=== PATIENT | female | born 1950 | race Caucasian/White ===

== ENCOUNTER 2016-09-04 12:40 | Inpatient (IN) | payer SELFPAY ==
[~2016-09-04] VITALS: Ht 167.6 cm; Wt 68.2 kg
[2016-09-04] VITALS (10 sets, daily range): BP systolic 165–244; BP diastolic 78–123; PULSE 69–108; RESP 16–24; TEMP 98–98.2; O2SAT 96–100
[~2016-09-04 12:40] MED LIST: CLON.1 PO; CYCL1PAK PO; DUONI NEB; HYDR-3533 PO; HYDR-3580 PO; ISOS30TA3 PO; LORA-474 PO; NEBI5 PO; NICO14DI18 TD; NITR.4 SL; PRED2.5T4 PO; PROT40TA PO; SPIRCAP INH; SYMB160A INH; XYZA5TAB2 PO
--- NOTE | 2016-09-04 13:15 | PD ---
HPI Chief Complaint: Edema Time Seen by Provider: 13:15 Travel History International Travel<30 days: No Contact w/Intl Traveler<30days: No Traveled to known affect area: No History of Present Illness HPI 66-year-old female with history of COPD, CAD, hypertension, GERD, anxiety presents to the emergency department for evaluation of difficulty breathing. Patient states over the last 4 months she has been having more exacerbations. She states her physician has placed her on prophylactic azithromycin. She states she is also currently taking 1000 mg of Augmentin. She is getting Decadron injections and she states she is just not getting any better. She is also having lower extremity swelling. She states she has been unable to take her Lasix today but they are not helping her either. She denies any recent illnesses, fever, or chills. She states that she has waited too long to come to the emergency department thinking that she may get better. She states she's been having extreme tightness in her chest with difficulty breathing. Continues to smoke tobacco cigarettes. Has no other symptoms to report at this time. PFSH Past Medical History Arthritis: No Asthma: Yes Autoimmune Disease: No Anxiety: Yes Depression: No Heart Rhythm Problems: No Cancer: No Cardiac Catheterization: Yes Cardiovascular Problems: Yes High Cholesterol: Yes Chemotherapy: No Chest Pain: Yes Congestive Heart Failure: No COPD: Yes Cerebrovascular Accident: No Coronary Artery Disease: Yes Diabetes: No Diminished Hearing: No Endocrine: No GERD: No Genitourinary: No Hepatitis: No Hiatal Hernia: No Hypertension: Yes Immune Disorder: No Kidney Stones: No Musculoskeletal: Yes Neurologic: No Psychiatric: No Reproductive: No Respiratory: Yes Migraines: No Pneumonia: Yes Radiation Therapy: No Renal Failure: No Seizures: No Sickle Cell Disease: No Sleep Apnea: No Thyroid Disease: No Ulcer: Yes Tubal Ligation: Yes Past Surgical History Abdominal Surgery: Yes (open aorta femeral bypass) AICD: No Appendectomy: Yes Arteriovenous Shunt: No Body Medical Devices: Breast implants Cardiac Surgery: Yes (non interventional heart cath) Ear Surgery: No Endocrine Surgery: No Eye Surgery: No Genitourinary Surgery: No Gynecologic Surgery: Yes (Hysterectomy) Hysterectomy: Yes Insulin Pump: No Joint Replacement: No Oral Surgery: Yes Pacemaker: No Thoracic Surgery: Yes (Brochoscopy) Tonsillectomy: Yes Social History Alcohol Use: Yes (OCCASIONAL) Tobacco Use: Yes (E-CIG/4-5 CIGS/DAY) Substance Use: No Allergies-Medications (Allergen,Severity, Reaction): Coded Allergies: Demerol (Verified Allergy, Severe, Anaphylaxis, 09/04/16) Tetracycline (Verified Allergy, Unknown, 09/04/16) Reported Meds & Prescriptions Reported Meds & Active Scripts Active Reported Augmentin (Amoxicillin-Clavulanate) 875-125 mg Tab 875 Mg PO BID not for use in CrCl <30 ml/min. Prednisone 1 Mg Tab 1 Mg PO DAILY Zithromax (Azithromycin) 500 Mg Tab 500 Mg PO DAILY [place] (Hydrocodone-Acetaminophen) 5-325 mg Tab 1 Tab PO Q6H PRN Ativan (Lorazepam) 0.5 Mg Tab 0.5 Mg PO DAILY PRN Vitamin D (Cholecalciferol) 5,000 Unit Tab 4,000 Spiriva Handihaler (Tiotropium Inh) 18 Mcg Cap 18 Mcg INH DAILY 1 capsule = 18 mcg Symbicort Inh (Budesonide/Formoterol Fumarate) 160-4.5 Mcg/Act Aero 1 Puff INH Q12HR Losartan (Losartan Potassium) 25 Mg Tab 25 Mg PO DAILY Amlodipine (Amlodipine Besylate) 5 Mg Tab 5 Mg PO DAILY [imdur] Review of Systems Except as stated in HPI: all other systems reviewed are Neg Physical Exam Narrative GENERAL: Chronically ill-appearing female patient, with strong smell of tobacco cigarette smoke, sitting on the bed, short respirations, in mild distress SKIN: Warm and dry. HEAD: Atraumatic. Normocephalic. EYES: Pupils equal and round. No scleral icterus. No injection or drainage. ENT: No nasal bleeding or discharge. Mucous membranes pink and moist. NECK: Trachea midline. No JVD. CARDIOVASCULAR: Tachycardic rate and rhythm. No murmur appreciated. RESPIRATORY: Shallow respirations. Diminished with a faint inspiratory and expiratory wheeze to auscultation. Breath sounds equal bilaterally. GASTROINTESTINAL: Abdomen soft, non-tender, nondistended. Hepatic and splenic margins not palpable. MUSCULOSKELETAL: No obvious deformities. No clubbing. No cyanosis. 2+ bilateral lower extremity edema. NEUROLOGICAL: Awake and alert. No obvious cranial nerve deficits. Motor grossly within normal limits. Normal speech. Data Data Last Documented VS Vital Signs Date Time Temp Pulse Resp B/P Pulse Ox O2 Delivery O2 Flow Rate FiO2 09/04/16 17:58 69 18 187/97 100 Aerosol Mask 09/04/16 16:33 2 09/04/16 13:35 21 09/04/16 12:44 98.0 Orders Complete Blood Count With Diff (09/04/16 13:19) Comprehensive Metabolic Panel (09/04/16 13:19) B-Type Natriuretic Peptide (09/04/16 13:19) D-Dimer (09/04/16 13:19) Act Partial Throm Time (Ptt) (09/04/16 13:19) Prothrombin Time / Inr (Pt) (09/04/16 13:19) Magnesium (Mg) (09/04/16 13:19) Ckmb (Isoenzyme) Profile (09/04/16 13:19) Troponin I (09/04/16 13:19) Urinalysis - C+S If Indicated (09/04/16 13:19) Influenzae A/B Antigen (09/04/16 13:19) Blood Culture (09/04/16 13:19) Electrocardiogram (09/04/16 13:19) Chest, Single Ap (09/04/16 13:19) Albuterol-Ipratropium Neb (Duoneb Neb) (09/04/16 13:30) Lactic Acid Sepsis Protocol (09/04/16 13:26) CKMB (09/04/16 13:40) CKMB% (09/04/16 13:40) Labetalol Inj (Trandate Inj) (09/04/16 16:00) Ct Pulmonary Angiogram (09/04/16 16:02) Methylprednisolone So Succ Inj (Solumedr (09/04/16 16:15) Levofloxacin 750 Mg Premix Inj (Levaquin (09/04/16 16:15) Albuterol Neb (Albuterol Neb) (09/04/16 17:15) Iohexol 350 Inj (Omnipaque 350 Inj) (09/04/16 17:28) Amlodipine (Norvasc) (09/05/16 09:00) Budeson-Formot 160-4.5 Mg Inh (Symbicort (09/04/16 21:00) Acetamin-Hydrocod 325-5 Mg ([place] 5-325 (09/04/16 18:15) Lorazepam (Ativan) (09/04/16 18:15) Losartan (Cozaar) (09/05/16 09:00) Prednisone (Deltasone) (09/05/16 09:00) Tiotropium Inh (Spiriva Inh) (09/05/16 09:00) Admit Order (Ed Use Only) (09/04/16 18:03) Enoxaparin Inj (Lovenox Inj) (09/04/16 18:15) Consult Hematology (09/04/16 ) Labs Laboratory Tests Test 09/04/16 09/04/16 13:40 13:45 White Blood Count 18.6 TH/MM3 Red Blood Count 4.62 MIL/MM3 Hemoglobin 14.4 GM/DL Hematocrit 42.4 % Mean Corpuscular Volume 91.8 FL Mean Corpuscular Hemoglobin 31.2 PG Mean Corpuscular Hemoglobin 34.0 % Concent Red Cell Distribution Width 14.4 % Platelet Count 266 TH/MM3 Mean Platelet Volume 7.3 FL Neutrophils (%) (Auto) 78.3 % Lymphocytes (%) (Auto) 12.9 % Monocytes (%) (Auto) 8.4 % Eosinophils (%) (Auto) 0.1 % Basophils (%) (Auto) 0.3 % Neutrophils # (Auto) 14.6 TH/MM3 Lymphocytes # (Auto) 2.4 TH/MM3 Monocytes # (Auto) 1.6 TH/MM3 Eosinophils # (Auto) 0.0 TH/MM3 Basophils # (Auto) 0.0 TH/MM3 CBC Comment DIFF FINAL Differential Comment Prothrombin Time 10.0 SEC Prothromb Time International 0.9 RATIO Ratio Activated Partial 23.0 SEC Thromboplast Time D-Dimer Quantitative (PE/DVT) 0.70 MG/L FEU Urine Color LIGHT-YELLOW Urine Turbidity CLEAR Urine pH 7.0 Urine Specific [place] 1.006 Urine Protein NEG mg/dL Urine Glucose (UA) NEG mg/dL Urine Ketones NEG mg/dL Urine Occult Blood NEG Urine Nitrite NEG Urine Bilirubin NEG Urine Urobilinogen LESS THAN 2.0 MG/DL Urine Leukocyte Esterase NEG Urine RBC LESS THAN 1 /hpf Urine WBC LESS THAN 1 /hpf Urine Squamous Epithelial <1 /hpf Cells Microscopic Urinalysis Comment CULT NOT INDICATED Sodium Level 139 MEQ/L Potassium Level 3.5 MEQ/L Chloride Level 99 MEQ/L Carbon Dioxide Level 34.0 MEQ/L Anion Gap 6 MEQ/L Blood Urea Nitrogen 20 MG/DL Creatinine 0.93 MG/DL Estimat Glomerular Filtration 61 ML/MIN Rate Random Glucose 100 MG/DL Calcium Level 8.7 MG/DL Magnesium Level 2.2 MG/DL Total Bilirubin 0.3 MG/DL Aspartate Amino Transf 25 U/L (AST/SGOT) Alanine Aminotransferase 42 U/L (ALT/SGPT) Alkaline Phosphatase 82 U/L Total Creatine Kinase 120 U/L Creatine Kinase MB 4.9 NG/ML Troponin I 0.02 NG/ML B-Type Natriuretic Peptide 215 PG/ML Total Protein 6.6 GM/DL Albumin 3.6 GM/DL Lactic Acid Level 1.1 mmol/L MDM Medical Decision Making Medical Screen Exam Complete: Yes Emergency Medical Condition: Yes Medical Record Reviewed: Yes Differential Diagnosis COPD exacerbation versus pneumonia versus influenza versus neoplasm versus CHF Narrative Course 66-year-old female presents to the emergency department for evaluation. Workup initiated in triage. Patient is given DuoNeb 3 here in triage as well. Once a medical bed becomes available, patient will be transferred and care assumed by that provider. Condition: Stable Kasie Ashley Sep 04, 2016 13:15
[2016-09-04] MEDS: RESP: ALBUTEROL 2.5 MG/IPRATROPIUM 0.5 MG NEB (SCH) INH ×2 (13:30→13:34)
[2016-09-04 14:03] LABS: AUTOMATED NEUTROPHIL # 14.6 TH/MM3 (1.8-7.7); BASOPHIL % 0.3 % (0.0-2.0); EOSINOPHIL % 0.1 % (0.0-4.0); HEMATOCRIT 42.4 % (35.0-46.0); HEMO FLAGS DIFF FINAL; LYMPH % 12.9 % (9.0-44.0); LYMPHOCYTE # 2.4 TH/MM3 (1.0-4.8); MEAN CELL VOLUME 91.8 FL (80.0-100.0); MEAN CORPUSCULAR HEMOGLOBIN 31.2 PG (27.0-34.0); MONO % 8.4 % (0.0-8.0); NEUT % 78.3 % (16.0-70.0); PLATELET COUNT 266 TH/MM3 (150-450); RED BLOOD COUNT 4.62 MIL/MM3 (4.00-5.30); RED CELL DISTRIBUTION WIDTH 14.4 % (11.6-17.2); WHITE BLOOD COUNT 18.6 TH/MM3 (4.0-11.0)
[2016-09-04 14:04] LABS: BLOOD, URINE NEG (NEG); GLUCOSE,URINE NEG (NEG); KETONE, URINE NEG (NEG); NITRITE,URINE NEG (NEG); SQUAMOUS EPITHELIAL CELL URINE <1 /hpf (0-5); URINE COLOR LIGHT-YELLOW (YELLW/STRAW)
[2016-09-04 14:06] LABS: COMMENT (UR) CULT NOT INDICATED; CULTURE IF INDICATED CULT NOT INDICATED
--- NOTE | 2016-09-04 14:14 | RADRPT ---
EXAM DATE/TIME: 09/04/2016 13:18 [facility] COMPARISON: CHEST SINGLE AP, October 04, 2014, 16:56. INDICATIONS : Patient is very short of breath. She also states she has chest pain in the center of her chest. MEDICAL HISTORY : Hypertension. Chronic obstructive pulmonary disease. SURGICAL HISTORY : None. ENCOUNTER: Initial ACUITY: 3 weeks PAIN SCORE: 6/10 LOCATION: chest FINDINGS: The cardiac silhouette is enlarged in transverse diameter. The lungs are free of acute parenchymal op acity. No effusions are identified. Osseous structures are intact. CONCLUSION: Cardiomegaly. No acute cardiopulmonary disease. Jesús Cruz MD on September 04, 2016 at 14:12 Board Certified Radiologist. This report was verified electronically.
[2016-09-04 14:18] LABS: ALT (GPT) 42 U/L (10-53); ANION GAP 6 MEQ/L (5-15); AST (GOT) 25 U/L (15-37); BLOOD UREA NITROGEN 20 MG/DL (7-18); CHLORIDE 99 MEQ/L (98-107); GLOMERULAR FILTRATION RATE 61 ML/MIN (>89); MAGNESIUM 2.2 MG/DL (1.5-2.5); POTASSIUM 3.5 MEQ/L (3.5-5.1); SODIUM (NA) 139 MEQ/L (136-145)
[2016-09-04 14:23] LABS: ALKALINE PHOSPHATASE 82 U/L (45-117); CREATINE KINASE 120 U/L (26-192); TOTAL BILIRUBIN ADULT 0.3 MG/DL (0.2-1.0)
[2016-09-04 14:27] LABS: INTERNATIONAL NORMALIZED RATIO 0.9 RATIO
[2016-09-04 14:35] LABS: CKMB 4.9 NG/ML (0.5-3.6)
[2016-09-04] MEDS ORDERED: LABETALOL HCL 100 MG/20 ML VIAL IV PUSH ONE (16:00)
[2016-09-04] MEDS ORDERED: LEVOFLOXACIN 750 MG PREMIX INJ 150 ML IV ONE (16:15)
[2016-09-04] MEDS ORDERED: methylPREDNISolone SOD SUCC 125 MG/2 ML VIAL IVP ONE (16:15)
[2016-09-04] MEDS ORDERED: LORA-392 PO (16:57)
[2016-09-04] MEDS ORDERED: imdur (16:57)
[2016-09-04] MEDS ORDERED: AMLO5TAB2 PO (16:57)
[2016-09-04] MEDS ORDERED: LOSA25TA PO (16:57)
[2016-09-04] MEDS ORDERED: ZITH500T PO (16:57)
[2016-09-04] MEDS ORDERED: AUGM875T PO (16:57)
[2016-09-04] MEDS ORDERED: SYMB160A INH (16:57)
[2016-09-04] MEDS ORDERED: NORC5TAB PO (16:57)
[2016-09-04] MEDS ORDERED: SPIRCAP INH (16:57)
[2016-09-04] MEDS ORDERED: CHOL50006 (16:57)
[2016-09-04] MEDS ORDERED: PRED1 PO (16:57)
[2016-09-04] MEDS ORDERED: IOHEXOL 350 MG/ML 10 ML VIAL (for RAD DIAG) IV ONE (17:28)
[2016-09-04] MEDS: RESP: ALBUTEROL 2.5 MG/3 ML NEB (SCH) INH (17:48)
--- NOTE | 2016-09-04 17:50 | RADRPT ---
EXAM DATE/TIME: 09/04/2016 17:11 [facility] COMPARISON: No previous studies available for comparison. INDICATIONS : Shortness of breath; evaluate for pulmonary embolism. IV CONTRAST: 75 cc Omnipaque 350 (iohexol) IV RADIATION DOSE: 9.66 CTDIvol (mGy) MEDICAL HISTORY : Cardiovascular disease. Chronic obstructive pulmonary disease. SURGICAL HISTORY : Appendectomy. Hysterectomy. ENCOUNTER: Initial ACUITY: 1 day PAIN SCALE: 3/10 LOCATION: Chest TECHNIQUE: Volumetric scanning of the chest was performed using a pulmonary embolism protocol MIP images were reconstructed. Using automated exposure control and adjustment of the mA and/or kV acco rding to patient size, radiation dose was kept as low as reasonably achievable to obtain optimal diag nostic quality images. FINDINGS: There is mild interstitial prominence. There is minimal peribronchial thickening in th e medial segment of the right middle lobe. There is no axillary adenopathy. There is no mediastinal adenopathy. There is good visualization of the central pulmonary vessels. There is no evidence for a central pul monary emboli. However there is what looks like a filling defect in the left inferior pulmonary vein. The remainder pulmonary veins are well opacified. This could be pulmonary venous thrombosis. There is reflux of contrast in the hepatic veins. This can be seen with right heart failure. There is no significant coronary artery calcification. There is a well-circumscribed 1.5 cm lesion in the right lobe of the liver. CONCLUSION: 1. Possible left inferior pulmonary vein thrombosis. 2. Possible elevated right heart pressure with reflux of contrast into the hepatic veins. Bib Souza MD FACR on September 04, 2016 at 17:31 Board Certified Radiologist. This report was verified electronically.
[2016-09-04] MEDS ORDERED: BISACODYL 10 MG SUPP PR PRN (18:15)
[2016-09-04] MEDS ORDERED: ONDANSETRON HCL 4 MG/2 ML VIAL IVP PRN (18:15)
[2016-09-04] MEDS ORDERED: SODIUM CHLORIDE 0.9% FLUSH 5 ML FLUSH FLUSH PRN (18:15)
[2016-09-04] MEDS ORDERED: ENOXAPARIN SODIUM 60 MG/0.6 ML SYRINGE SQ ONE (18:15)
[2016-09-04] MEDS ORDERED: NALOXONE HCL 0.4 MG/ML AMP IV PRN (18:15)
--- NOTE | 2016-09-04 18:22 | PD ---
Data Data Last Documented VS Vital Signs Date Time Temp Pulse Resp B/P Pulse Ox O2 Delivery O2 Flow Rate FiO2 09/04/16 17:58 69 18 187/97 100 Aerosol Mask 09/04/16 16:33 2 09/04/16 13:35 21 09/04/16 12:44 98.0 Orders Complete Blood Count With Diff (09/04/16 13:19) Comprehensive Metabolic Panel (09/04/16 13:19) B-Type Natriuretic Peptide (09/04/16 13:19) D-Dimer (09/04/16 13:19) Act Partial Throm Time (Ptt) (09/04/16 13:19) Prothrombin Time / Inr (Pt) (09/04/16 13:19) Magnesium (Mg) (09/04/16 13:19) Ckmb (Isoenzyme) Profile (09/04/16 13:19) Troponin I (09/04/16 13:19) Urinalysis - C+S If Indicated (09/04/16 13:19) Influenzae A/B Antigen (09/04/16 13:19) Blood Culture (09/04/16 13:19) Electrocardiogram (09/04/16 13:19) Chest, Single Ap (09/04/16 13:19) Albuterol-Ipratropium Neb (Duoneb Neb) (09/04/16 13:30) Lactic Acid Sepsis Protocol (09/04/16 13:26) CKMB (09/04/16 13:40) CKMB% (09/04/16 13:40) Labetalol Inj (Trandate Inj) (09/04/16 16:00) Ct Pulmonary Angiogram (09/04/16 16:02) Methylprednisolone So Succ Inj (Solumedr (09/04/16 16:15) Levofloxacin 750 Mg Premix Inj (Levaquin (09/04/16 16:15) Albuterol Neb (Albuterol Neb) (09/04/16 17:15) Iohexol 350 Inj (Omnipaque 350 Inj) (09/04/16 17:28) Amlodipine (Norvasc) (09/05/16 09:00) Budeson-Formot 160-4.5 Mg Inh (Symbicort (09/04/16 21:00) Acetamin-Hydrocod 325-5 Mg ([place] 5-325 (09/04/16 18:15) Lorazepam (Ativan) (09/04/16 18:15) Losartan (Cozaar) (09/05/16 09:00) Prednisone (Deltasone) (09/05/16 09:00) Tiotropium Inh (Spiriva Inh) (09/05/16 09:00) Admit Order (Ed Use Only) (09/04/16 18:03) Enoxaparin Inj (Lovenox Inj) (09/04/16 18:15) Consult Hematology (09/04/16 ) Labs Laboratory Tests Test 09/04/16 09/04/16 13:40 13:45 White Blood Count 18.6 TH/MM3 Red Blood Count 4.62 MIL/MM3 Hemoglobin 14.4 GM/DL Hematocrit 42.4 % Mean Corpuscular Volume 91.8 FL Mean Corpuscular Hemoglobin 31.2 PG Mean Corpuscular Hemoglobin 34.0 % Concent Red Cell Distribution Width 14.4 % Platelet Count 266 TH/MM3 Mean Platelet Volume 7.3 FL Neutrophils (%) (Auto) 78.3 % Lymphocytes (%) (Auto) 12.9 % Monocytes (%) (Auto) 8.4 % Eosinophils (%) (Auto) 0.1 % Basophils (%) (Auto) 0.3 % Neutrophils # (Auto) 14.6 TH/MM3 Lymphocytes # (Auto) 2.4 TH/MM3 Monocytes # (Auto) 1.6 TH/MM3 Eosinophils # (Auto) 0.0 TH/MM3 Basophils # (Auto) 0.0 TH/MM3 CBC Comment DIFF FINAL Differential Comment Prothrombin Time 10.0 SEC Prothromb Time International 0.9 RATIO Ratio Activated Partial 23.0 SEC Thromboplast Time D-Dimer Quantitative (PE/DVT) 0.70 MG/L FEU Urine Color LIGHT-YELLOW Urine Turbidity CLEAR Urine pH 7.0 Urine Specific [place] 1.006 Urine Protein NEG mg/dL Urine Glucose (UA) NEG mg/dL Urine Ketones NEG mg/dL Urine Occult Blood NEG Urine Nitrite NEG Urine Bilirubin NEG Urine Urobilinogen LESS THAN 2.0 MG/DL Urine Leukocyte Esterase NEG Urine RBC LESS THAN 1 /hpf Urine WBC LESS THAN 1 /hpf Urine Squamous Epithelial <1 /hpf Cells Microscopic Urinalysis Comment CULT NOT INDICATED Sodium Level 139 MEQ/L Potassium Level 3.5 MEQ/L Chloride Level 99 MEQ/L Carbon Dioxide Level 34.0 MEQ/L Anion Gap 6 MEQ/L Blood Urea Nitrogen 20 MG/DL Creatinine 0.93 MG/DL Estimat Glomerular Filtration 61 ML/MIN Rate Random Glucose 100 MG/DL Calcium Level 8.7 MG/DL Magnesium Level 2.2 MG/DL Total Bilirubin 0.3 MG/DL Aspartate Amino Transf 25 U/L (AST/SGOT) Alanine Aminotransferase 42 U/L (ALT/SGPT) Alkaline Phosphatase 82 U/L Total Creatine Kinase 120 U/L Creatine Kinase MB 4.9 NG/ML Troponin I 0.02 NG/ML B-Type Natriuretic Peptide 215 PG/ML Total Protein 6.6 GM/DL Albumin 3.6 GM/DL Lactic Acid Level 1.1 mmol/L MDM Supervised Visit with RODNEY: Yes Narrative Course I, Dr. Cortez, have reviewed the advance practice practioner's documentation and am in agreement, met with the patient face to face, made the diagnosis, and the medical decision making was done by me. *My assessment and Findings: 66-year-old female with history of COPD, CAD here with complaint of shortness of breath. Essentially patient has been ill for the last 4 months with COPD exacerbation type symptoms intermittently on antibiotics and glucocorticoids, most recently receiving Augmentin and Decadron/ prednisone this past Wednesday, 3 days ago. Patient still feels short of breath and states that this is not helping, cough productive of clear sputum. No documented fevers. She continues smokes tobacco. No history of DVT, PE. She is on Lasix for lower extremity edema but denies history of CHF. Patient notably hypertensive, slightly tachycardic and slightly tachypneic but not hypoxic. Coarse breath sounds throughout. Regular rhythm with good distal pulses. Differential includes COPD exacerbation, pneumonia, sepsis, hypertensive urgency, CHF, pulmonary embolism. EKG and laboratory workup notable for WBC 18.6, likely due to her underlying glucocorticoids but could be infectious . D-dimer slightly elevated 0.70. Influenza and chest x-ray negative. Patient given steroids, albuterol, labetalol, Levaquin. CT pulmonary intervention was possible left inferior pulmonary vein thrombosis. Possible elevated right heart pressure with reflux of contrast into hepatic vein. Patient was given Lovenox and will be admitted for further management and hematology consultation. Critical Care Narrative Aggregate critical care time was 40 minutes. Time to perform other separately billable procedures was not included in the critical care time. My time did not include minutes spent treating any other patients simultaneously or on activities that did not directly contribute to the patient's treatment. The services I provided to this patient were to treat and/or prevent clinically significant deterioration that could result in: Cardiopulmonary decompensation, , disability I provided critical care services requiring my management, as noted below: Chart data review, documentation time, medication orders and management, vital sign assessments/reviewing monitor data, ordering and reviewing lab tests, ordering and interpreting/reviewing x-rays and diagnostic studies, care of the patient and discussion of the patient with the admitting physicians. Diagnosis Primary Impression: Pulmonary embolism Qualified Code: I26.99 - Other acute pulmonary embolism without acute cor pulmonale Additional Impression: COPD exacerbation Admitting Information Admitting Physician Requests: Admit Condition: Stable Leslee Cortez MD Sep 04, 2016 18:22
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
[2016-09-04] MEDS: ENALAPRILAT 1.25 MG/ML VIAL IV PUSH PRN (19:45)
[2016-09-04] MEDS: ENOXAPARIN SODIUM 60 MG/0.6 ML SYRINGE SQ SCH ×2 (19:45→20:29)
[2016-09-04] MEDS ORDERED: FURO20TA PO (20:10)
[2016-09-04] MEDS ORDERED: HYCOS PO (20:10)
[2016-09-04] MEDS ORDERED: MUCI30TA2 PO (20:10)
[2016-09-04] MEDS ORDERED: CYCL1TAB29 PO (20:10)
[2016-09-04] MEDS: SODIUM CHLORIDE 0.9% FLUSH 5 ML FLUSH FLUSH SCH (21:00)
[2016-09-04] MEDS: BUDESONIDE-FORMOTEROL 160/4.5 MCG INHALER INH SCH (21:45)
[2016-09-04] MEDS: LORazepam 0.5 MG TAB PO PRN (21:46)
[2016-09-04] MEDS: ACETAMINOPHEN/HYDROcodone 325 MG/5 MG TAB PO PRN (21:46)
[2016-09-05] VITALS (11 sets, daily range): BP systolic 138–204; BP diastolic 67–101; PULSE 71–95; RESP 18–22; TEMP 97.5–98.4; O2SAT 95–100
[2016-09-05 07:12] LABS: AUTOMATED NEUTROPHIL # 12.2 TH/MM3 (1.8-7.7); BASOPHIL % 0.1 % (0.0-2.0); HEMATOCRIT 39.3 % (35.0-46.0); HEMO FLAGS DIFF FINAL; LYMPH % 6.5 % (9.0-44.0); LYMPHOCYTE # 0.9 TH/MM3 (1.0-4.8); MEAN CORPUSCULAR HGB CONC 33.3 % (32.0-36.0); MONO % 4.7 % (0.0-8.0); NEUT % 88.7 % (16.0-70.0); PLATELET COUNT 206 TH/MM3 (150-450); RED BLOOD COUNT 4.23 MIL/MM3 (4.00-5.30); RED CELL DISTRIBUTION WIDTH 14.4 % (11.6-17.2); WHITE BLOOD COUNT 13.8 TH/MM3 (4.0-11.0)
[2016-09-05 07:32] LABS: BICARBONATE 30.8 MEQ/L (21.0-32.0); POTASSIUM 3.5 MEQ/L (3.5-5.1)
[2016-09-05] MEDS: amLODIPine BESYLATE 5 MG TAB PO SCH (08:29)
[2016-09-05] MEDS: BUDESONIDE-FORMOTEROL 160/4.5 MCG INHALER INH SCH ×2 (08:29→20:57)
[2016-09-05] MEDS: LOSARTAN 25 MG TAB PO SCH (08:29)
[2016-09-05] MEDS: SODIUM CHLORIDE 0.9% FLUSH 5 ML FLUSH FLUSH SCH ×2 (08:29→20:56)
[2016-09-05] MEDS: ENOXAPARIN SODIUM 60 MG/0.6 ML SYRINGE SQ SCH ×2 (08:29→20:57)
[2016-09-05] MEDS: TIOTROPIUM BROMIDE 18 MCG INH INH SCH (08:30)
[2016-09-05] MEDS: predniSONE 1 MG TAB PO SCH (08:34)
[2016-09-05] MEDS: LORazepam 0.5 MG TAB PO PRN (09:30)
[2016-09-05] MEDS: cloNIDine HCL 0.1 MG TAB PO PRN (09:30)
--- NOTE | 2016-09-05 09:57 | HHI.PR ---
Subjective Remarks 66yr old female seen and examined today. Still with SOB/wheezing. Also has more swelling in her legs. Per patient she was recently started on lasix by her pcp for edema. No CP/fever/NVD. Objective Objective Results - Vital Signs Date Time Temp Pulse Resp B/P Pulse Ox O2 Delivery O2 Flow Rate FiO2 09/05/16 09:24 180/80 09/05/16 08:00 97.5 84 20 198/101 100 09/05/16 08:00 190/98 09/05/16 04:20 98.0 71 18 158/77 100 09/05/16 00:00 97.9 78 20 138/67 98 09/04/16 21:13 98.2 71 16 165/78 98 09/04/16 20:30 72 09/04/16 19:56 71 18 174/84 99 Nasal Cannula 2 09/04/16 19:44 75 18 170/78 99 Nasal Cannula 09/04/16 19:13 72 20 190/82 98 Nasal Cannula 09/04/16 17:58 69 18 187/97 100 Aerosol Mask 09/04/16 16:33 69 20 177/86 99 Nasal Cannula 2 09/04/16 16:02 94 20 97 Room Air 09/04/16 16:02 92 20 241/117 97 Room Air 09/04/16 13:35 98 21 09/04/16 12:44 98.0 108 24 244/123 96 Room Air I/O 09/04/16 09/04/16 09/04/16 09/05/16 09/05/16 09/05/16 07:00 15:00 23:00 07:00 15:00 23:00 Intake Total 600 ml 500 ml Balance 600 ml 500 ml Intake Oral 600 ml 500 ml # Voids 3 2 # Bowel Movements 0 0 Result Diagram: 09/05/16 0535 09/05/16 0535 Other Results Laboratory Tests Test 09/04/16 09/04/16 09/04/16 09/05/16 13:40 13:45 19:54 05:35 White Blood Count 18.6 13.8 Red Blood Count 4.62 4.23 Hemoglobin 14.4 13.1 Hematocrit 42.4 39.3 Mean Corpuscular Volume 91.8 93.0 Mean Corpuscular Hemoglobin 31.2 31.0 Mean Corpuscular Hemoglobin 34.0 33.3 Concent Red Cell Distribution Width 14.4 14.4 Platelet Count 266 206 Mean Platelet Volume 7.3 7.6 Neutrophils (%) (Auto) 78.3 88.7 Lymphocytes (%) (Auto) 12.9 6.5 Monocytes (%) (Auto) 8.4 4.7 Eosinophils (%) (Auto) 0.1 0.0 Basophils (%) (Auto) 0.3 0.1 Neutrophils # (Auto) 14.6 12.2 Lymphocytes # (Auto) 2.4 0.9 Monocytes # (Auto) 1.6 0.6 Eosinophils # (Auto) 0.0 0.0 Basophils # (Auto) 0.0 0.0 CBC Comment DIFF FINAL DIFF FINAL Differential Comment Prothrombin Time 10.0 Prothromb Time International 0.9 Ratio Activated Partial 23.0 Thromboplast Time D-Dimer Quantitative (PE/DVT) 0.70 Urine Color LIGHT-YELLOW Urine Turbidity CLEAR Urine pH 7.0 Urine Specific [place] 1.006 Urine Protein NEG Urine Glucose (UA) NEG Urine Ketones NEG Urine Occult Blood NEG Urine Nitrite NEG Urine Bilirubin NEG Urine Urobilinogen LESS THAN 2.0 Urine Leukocyte Esterase NEG Urine RBC LESS THAN 1 Urine WBC LESS THAN 1 Urine Squamous Epithelial <1 Cells Microscopic Urinalysis Comment CULT NOT INDICATED Sodium Level 139 138 Potassium Level 3.5 3.5 Chloride Level 99 98 Carbon Dioxide Level 34.0 30.8 Anion Gap 6 9 Blood Urea Nitrogen 20 22 Creatinine 0.93 0.84 Estimat Glomerular Filtration 61 68 Rate Random Glucose 100 207 Calcium Level 8.7 8.2 Magnesium Level 2.2 Total Bilirubin 0.3 Aspartate Amino Transf 25 (AST/SGOT) Alanine Aminotransferase 42 (ALT/SGPT) Alkaline Phosphatase 82 Total Creatine Kinase 120 104 Creatine Kinase MB 4.9 Troponin I 0.02 0.02 0.02 B-Type Natriuretic Peptide 215 Total Protein 6.6 Albumin 3.6 Lactic Acid Level 1.1 Date/Time Procedure Status Source Growth 09/04/16 13:40 Influenza Types A,B Antigen (COMFORT) - Final Complete Nasal Washing NEGATIVE FOR FLU A AND B ANTIGEN.... 09/04/16 13:40 Aerobic Blood Culture Received Blood Peripheral Pending 09/04/16 13:40 Anaerobic Blood Culture Received Blood Peripheral Pending ROS General: Weakness HEENT: No: Sore Throat, Dysphagia, Other Cardiac: No: Chest Pain, Edema, Palpitations, Other Pulmonary: SOB, Wheezing, Other (rales) GI: No: Abdominal Pain, BM, Diarrhea, N/V, Other /TREE PRUNER: No: Dysuria, Urgency, Other Neuro/MS: Other (trace anne pitting edema), No: Lightheaded, Confusion Psych: No: Anxiety, Depression, Other Skin: No: Itching, Rash, Other Physical Exam Physical Exam PHYSICAL EXAMINATION GENERAL: This is a well-developed, well-nourished female who appears to be in no acute distress. She is alert and awake HEAD: Normocephalic without any lesion or mass noted. Facial features appear symmetric. EYES: Perrla, Normal eye movement no Icterus. Conj congestion. OROPHARYNGEAL: Oropharynx without erythema or edema. MOUTH/THROAT: Tongue midline . Buccal mucosa is moist. NECK: Supple. No nuchal rigidity or lymphadenopathy. Trachea midline without deviation. Thyroid not palpable, no bruits appreciated. CARDIAC: Regular rhythm, regular rate, S1 and S2 are heard. No murmur. LUNGS: Anne wheezing/rhonchi. No rales. ABDOMEN: Soft, nontender, no organomegaly or masses. Bowel sounds are heard in all four quadrants. No rebound. No guarding. EXTREMITIES: Trace pedal edema. Pulses equal bilateral. no cyanosis. NEUROLOGICAL: Patient mood and affect appropriate. Cranial nerves II through XII grossly intact. Muscle strength 5/5 in the upper and lower extremities bilaterally. Deep tendon reflexes are 2+ in the upper and lower extremities bilaterally. SKIN:Warm and moist PSYCH: Mood and affect appropriate Urinary Catheter: No A/P Assessment and Plan Pulmonary vein thrombosis Severe COPD Bilateral wheezing Abdominal distention Cannot rule out ascites Bilateral lower extremity edema Possible elevated right heart pressure Reflux of contrast into the hepatic vein Management Admited to PCU Lovenox 1 mg/kg subcutaneous every 12 hours Solu-Medrol Supplemental oxygen Bronchodilators as needed Continue home medications Serial CKs and troponins 2-D echocardiogram pending Pain control Add lasix 20mg IV daily. Monitor BP closely. Discontinue smoking Consulted cardiology Consulted hematology Discussed with patient Discussed with RN DINO, BMP in am Yoni Menendez MD Sep 05, 2016 09:57
[2016-09-05] MEDS: FUROSEMIDE 20 MG/2 ML VIAL IV PUSH SCH (12:26)
[2016-09-05] MEDS: ENALAPRILAT 1.25 MG/ML VIAL IV PUSH PRN (12:30)
--- NOTE | 2016-09-05 12:47 | PD.CONS ---
HPI Service cardiology Consult Requested By hospital Reason for Consult chest pain Primary Care Physician Boston Ramires M.D. History of Present Illness admitted with sob severe progressive found to have PE had chest pains on and off with deep breath and without enzymes and ecg negative not active still smokes no edema claudications bilateral with history of aortobifem Review of Systems Consitutional: COMPLAINS OF: Fatigue Respiratory: COMPLAINS OF: Shortness of breath Cardiovascular: COMPLAINS OF: Chest pain Past Family Social History Allergies: Coded Allergies: Demerol (Verified Allergy, Severe, Anaphylaxis, 09/04/16) Tetracycline (Verified Allergy, Unknown, 09/04/16) Past Medical History as above and h/p Past Surgical History as above Reported Medications Reported Meds & Active Scripts Active Reported Hydromet Liq (Hydrocodone Bit/Homatropine Methylb) 5-1.5 Mg/5 Ml Syrp 5 Ml PO Q4H PRN Flexeril (Cyclobenzaprine HCl) 10 Mg Tab 10 Mg PO TID Mucinex DM (Dextromethorphan-Guaifenesin) 30-600 Mg Tab 1 Tab PO BID PRN Furosemide 20 Mg Tab 20 Mg PO DAILY Augmentin (Amoxicillin-Clavulanate) 875-125 mg Tab 875 Mg PO BID not for use in CrCl <30 ml/min. Prednisone 1 Mg Tab 1 Mg PO DAILY Zithromax (Azithromycin) 500 Mg Tab 500 Mg PO DAILY [place] (Hydrocodone-Acetaminophen) 5-325 mg Tab 1 Tab PO Q6H PRN Ativan (Lorazepam) 0.5 Mg Tab 0.5 Mg PO DAILY PRN Vitamin D (Cholecalciferol) 5,000 Unit Tab 4,000 Spiriva Handihaler (Tiotropium Inh) 18 Mcg Cap 18 Mcg INH DAILY 1 capsule = 18 mcg Symbicort Inh (Budesonide/Formoterol Fumarate) 160-4.5 Mcg/Act Aero 1 Puff INH Q12HR Losartan (Losartan Potassium) 25 Mg Tab 25 Mg PO DAILY Amlodipine (Amlodipine Besylate) 5 Mg Tab 5 Mg PO DAILY [imdur] Active Ordered Medications Current Medications Medications (Trade) Dose Ordered Sig/Sebastian Route Start Time Stop Time Status Last Admin (Norvasc) 5 mg DAILY PO 09/05/16 09:00 09/05/16 08:29 (Symbicort 160-4.5 Inh) 1 puff Q12HR INH 09/04/16 21:00 09/05/16 08:29 ([place] 5-325 Mg) 1 tab Q6H PRN PO 09/04/16 18:15 09/04/16 21:46 (Ativan) 0.5 mg DAILY PRN PO 09/04/16 18:15 09/05/16 09:30 (Cozaar) 25 mg DAILY PO 09/05/16 09:00 09/05/16 08:29 (Deltasone) 1 mg DAILY PO 09/05/16 09:00 09/05/16 08:34 (Spiriva Inh) 18 mcg DAILY INH 09/05/16 09:00 09/05/16 08:30 (NS Flush) 2 ml UNSCH PRN FLUSH 09/04/16 18:15 (NS Flush) 2 ml BID FLUSH 09/04/16 21:00 09/05/16 08:29 (Zofran Inj) 4 mg Q6H PRN IVP 09/04/16 18:15 (Dulcolax Supp) 10 mg DAILY PRN [place] 09/04/16 18:15 (Milk Of Magnzander Liq) 30 ml Q12H PRN PO 09/04/16 18:15 (Senokot) 17.2 mg Q12H PRN PO 09/04/16 18:15 (Lovenox Inj) 60 mg Q12HR SQ 09/04/16 18:15 09/05/16 08:29 (Narcan Inj) 0.4 mg UNSCH PRN IV 09/04/16 18:15 (Catapres) 0.1 mg Q6H PRN PO 09/04/16 19:30 09/05/16 09:30 (Apresoline) 25 mg Q4HR PRN PO 09/04/16 19:30 (Vasotec Inj) 1.25 mg Q6H PRN IV PUSH 09/04/16 19:30 09/05/16 12:30 (Lasix Inj) 20 mg DAILYAC IV PUSH 09/05/16 10:30 09/05/16 12:26 Social History smokes 10- cig daily Physical Exam Vital Signs Vital Signs Date Time Temp Pulse Resp B/P Pulse Ox O2 Delivery O2 Flow Rate FiO2 09/05/16 12:00 97.6 91 20 204/93 97 184/88 09/05/16 10:23 80 09/05/16 09:24 180/80 09/05/16 08:00 97.5 84 20 198/101 100 09/05/16 08:00 190/98 09/05/16 04:20 98.0 71 18 158/77 100 09/05/16 00:00 97.9 78 20 138/67 98 09/04/16 21:13 98.2 71 16 165/78 98 09/04/16 20:30 72 09/04/16 19:56 71 18 174/84 99 Nasal Cannula 2 09/04/16 19:44 75 18 170/78 99 Nasal Cannula 09/04/16 19:13 72 20 190/82 98 Nasal Cannula 09/04/16 17:58 69 18 187/97 100 Aerosol Mask 09/04/16 16:33 69 20 177/86 99 Nasal Cannula 2 09/04/16 16:02 94 20 97 Room Air 09/04/16 16:02 92 20 241/117 97 Room Air 09/04/16 13:35 98 21 09/04/16 12:44 98.0 108 24 244/123 96 Room Air Laboratory Laboratory Tests Test 09/04/16 09/04/16 09/04/16 09/05/16 13:40 13:45 19:54 05:35 White Blood Count 18.6 13.8 Red Blood Count 4.62 4.23 Hemoglobin 14.4 13.1 Hematocrit 42.4 39.3 Mean Corpuscular Volume 91.8 93.0 Mean Corpuscular Hemoglobin 31.2 31.0 Mean Corpuscular Hemoglobin 34.0 33.3 Concent Red Cell Distribution Width 14.4 14.4 Platelet Count 266 206 Mean Platelet Volume 7.3 7.6 Neutrophils (%) (Auto) 78.3 88.7 Lymphocytes (%) (Auto) 12.9 6.5 Monocytes (%) (Auto) 8.4 4.7 Eosinophils (%) (Auto) 0.1 0.0 Basophils (%) (Auto) 0.3 0.1 Neutrophils # (Auto) 14.6 12.2 Lymphocytes # (Auto) 2.4 0.9 Monocytes # (Auto) 1.6 0.6 Eosinophils # (Auto) 0.0 0.0 Basophils # (Auto) 0.0 0.0 CBC Comment DIFF FINAL DIFF FINAL Differential Comment Prothrombin Time 10.0 Prothromb Time International 0.9 Ratio Activated Partial 23.0 Thromboplast Time D-Dimer Quantitative (PE/DVT) 0.70 Urine Color LIGHT-YELLOW Urine Turbidity CLEAR Urine pH 7.0 Urine Specific [place] 1.006 Urine Protein NEG Urine Glucose (UA) NEG Urine Ketones NEG Urine Occult Blood NEG Urine Nitrite NEG Urine Bilirubin NEG Urine Urobilinogen LESS THAN 2.0 Urine Leukocyte Esterase NEG Urine RBC LESS THAN 1 Urine WBC LESS THAN 1 Urine Squamous Epithelial <1 Cells Microscopic Urinalysis Comment CULT NOT INDICATED Sodium Level 139 138 Potassium Level 3.5 3.5 Chloride Level 99 98 Carbon Dioxide Level 34.0 30.8 Anion Gap 6 9 Blood Urea Nitrogen 20 22 Creatinine 0.93 0.84 Estimat Glomerular Filtration 61 68 Rate Random Glucose 100 207 Calcium Level 8.7 8.2 Magnesium Level 2.2 Total Bilirubin 0.3 Aspartate Amino Transf 25 (AST/SGOT) Alanine Aminotransferase 42 (ALT/SGPT) Alkaline Phosphatase 82 Total Creatine Kinase 120 104 Creatine Kinase MB 4.9 Troponin I 0.02 0.02 0.02 B-Type Natriuretic Peptide 215 Total Protein 6.6 Albumin 3.6 Lactic Acid Level 1.1 Date/Time Procedure Status Source Growth 09/04/16 13:40 Influenza Types A,B Antigen (COMFORT) - Final Complete Nasal Washing NEGATIVE FOR FLU A AND B ANTIGEN.... 09/04/16 13:40 Aerobic Blood Culture - Preliminary Resulted Blood Peripheral NO GROWTH IN 1 DAY 09/04/16 13:40 Anaerobic Blood Culture - Preliminary Resulted Blood Peripheral NO GROWTH IN 1 DAY Result Diagram: 09/05/16 0535 09/05/[address] noted Course still sob on anticoagulation Assessment and Plan Problem List: (1) Tobacco abuse (2) Hypertension (3) PVD (peripheral vascular disease) with claudication (4) Low back pain potentially associated with radiculopathy (5) Pulmonary embolism Assessment and Plan: possible start for po anticoagulation echo pending please call if needed (6) COPD exacerbation Problem Qualifiers (1) Pulmonary embolism: Qualified Code: I26.99 - Other acute pulmonary embolism without acute cor pulmonale Indio Lomas MD Sep 05, 2016 12:47
--- NOTE | 2016-09-05 14:12 | EC ---
Study Study Date:09/05/2016 STUDY CONCLUSIONS SUMMARY - Left ventricle: The cavity size was normal. Wall thickness was normal. Systolic function was normal. The estimated ejection fraction was in the range of 50% to 55%. Wall motion was normal; there were no regional wall motion abnormalities. - Mitral valve: Mildly calcified annulus. - Pulmonary arteries: PA peak pressure: 62mm Hg (S). If LV function is below 40, please consider prescribing an ACEI or ARB or document rationale for non-use. PROCEDURE DATA STUDY STATUS: Elective. Procedure: Transthoracic echocardiography. Image quality was good. Scanning was performed from the parasternal, apical, and subcostal acoustic windows. Study completion: The patient tolerated the procedure well. Transthoracic echocardiography. M-mode, complete 2D, complete spectral Doppler, and color Doppler. Patient status: Inpatient. CARDIAC ANATOMY LEFT VENTRICLE: The cavity size was normal. Wall thickness was normal. Systolic function was normal. The estimated ejection fraction was in the range of 50% to 55%. Wall motion was normal; there were no regional wall motion abnormalities. AORTIC VALVE: Trileaflet; mildly thickened, mildly calcified leaflets. Doppler: Transvalvular velocity was within the normal range. There was no stenosis. No regurgitation. AORTA: Aortic root: The aortic root was normal in size. MITRAL VALVE: Mildly calcified annulus. Doppler: Transvalvular velocity was within the normal range. There was no evidence for stenosis. Trace to mild regurgitation. Valve area by pressure half-time: 3.06cm^2. LEFT ATRIUM: The atrium was normal in size. RIGHT VENTRICLE: The cavity size was normal. Wall thickness was normal. PULMONIC VALVE: Doppler: Transvalvular velocity was within the normal range. There was no evidence for stenosis. No regurgitation. TRICUSPID VALVE: Structurally normal valve. Doppler: Transvalvular velocity was within the normal range. No regurgitation. PULMONARY ARTERY: The main pulmonary artery was normal-sized. Systolic pressure was within the normal range. RIGHT ATRIUM: The atrium was normal in size. PERICARDIUM: There was no pericardial effusion. SYSTEMIC VEINS: Inferior vena cava: The vessel was normal in size. BASIC MEASUREMENTS ADULT Normal Left ventricle LV internal dimension, ED, chordal level, *39.4 mm 43-52 PLAX LV internal dimension, ES, chordal level, 30.5 mm 23-38 PLAX Fractional shortening, chordal level, PLAX *23 % >29 LV posterior wall thickness, ED 11.4 mm IVS/LVPW ratio, ED *1.31 <1.3 Ventricular septum Septal thickness, ED 14.9 mm Aortic valve Leaflet separation 16 mm 15-26 Right ventricle RV internal dimension, ED, PLAX 21.2 mm 19-38 BASIC MEASUREMENTS ADULT Normal Aortic valve Leaflet separation 16 mm 15-26 Aorta Root diameter, ED 34 mm 20-37 Left atrium Anterior-posterior dimension, ES 29 mm 19-40 LA/aortic root ratio 0.85 DOPPLER MEASUREMENTS ADULT Normal Main pulmonary artery Pressure, S *62 mm Hg =30 Mitral valve Pressure half-time 72 ms Valve area, pressure half-time 3.06 cm^2 Tricuspid valve Regurgitant peak velocity 362 cm/s Peak RV-RA gradient, S 52 mm Hg Maximal regurgitant velocity 362 cm/s Systemic veins Estimated CVP 10 mm Hg Right ventricle RV pressure, S *62 mm Hg <30 LEGEND: Mean values are shown as u=mean value. Asterisk (*) delatorre values outside specified normal range. Prepared and signed by Favian Ballard [id number]
[2016-09-05] MEDS: RESP: ALBUTEROL 2.5 MG/IPRATROPIUM 0.5 MG NEB (SCH) NEB ×2 (15:44→21:10)
[2016-09-05] MEDS: ACETAMINOPHEN/HYDROcodone 325 MG/5 MG TAB PO PRN (16:29)
--- NOTE | 2016-09-05 18:02 | MB ---
cc: HEATHER LEON ZAFAR MD DATE OF CONSULTATION: 09/05/2016. HEMATOLOGY/ONCOLOGY CONSULTATION NOTE REQUESTING PHYSICIAN: Consult requested by the Hospitalist Physicians. PRIMARY CARE PHYSICIAN: Dr. Heather Leon. REASON FOR CONSULTATION: Patient with suspected pulmonary vein thrombosis involving the left main pulmonary vein. The hematology service has been consulted to render an opinion regarding anticoagulation. CHIEF COMPLAINT: The patient reports a one-month history of progressive difficulty breathing, which has been refractory to various lines of antibiotics and corticosteroids, both oral and intramuscular. HISTORY OF PRESENT ILLNESS: Ms. Butler is a 66-year-old female with an extensive past history of tobaccoism who unfortunately continues to smoke. She has a history of COPD, peripheral arterial disease, and has frequent COPD exacerbations. She reports having progressive difficulty breathing with minimal exertion and cough producing scant phlegm for the past one month. She tells me she had been treated with various oral antibiotics by her primary care physician including azithromycin and Augmentin. She was also put on incrementally increasing doses of corticosteroids; she started off by taking Prednisone 5 milligrams twice daily, this was increased after a week of no improvement to 10 milligrams twice daily and most recently she was initiated on 20 milligrams twice daily about ten days ago. She was in addition to this given intramuscular dexamethasone injections. None of these interventions seem to help. Two days prior to admission she began to develop pain, which she reports started in her back and radiated from the midline of the back to the sternum. This is when she decided to come to the emergency department here at [facility]. Upon presentation to the emergency department, she was noted to be in respiratory distress. Her 02 saturations have been greater than 95%. She did undergo a CT angiogram and the angiogram which was of excellent contrast quality indicated a possible inferior pulmonary vein thrombosis, not a pulmonary artery thrombosis, but a pulmonary vein thrombosis; i.e., the pulmonary vein which drains into the left atrium. The patient has been initiated on anticoagulation with Lovenox 60 milligrams twice daily. The hematology service has been consulted for further workup and evaluation. Ms. Butler reports this is the first episode of having had a venous or arterial thrombosis. PAST MEDICAL HISTORY: 1. Hypertension. 2. Peripheral arterial disease. 3. Ongoing tobaccoism. 4. COPD. PAST SURGICAL HISTORY: 1. Appendectomy. 2. Tonsillectomy. 3. Hysterectomy. 4. Knee surgery on the left knee. 5. Aortic bifemoral bypass surgery. FAMILY HISTORY: A sister of uterine cancer. The mother of advanced age. The father of cardiac issues. SOCIAL HISTORY: The patient lives at home alone. She is single. She has two adult children, one of whom lives in [place], the other one lives in [place]. 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 She is now disabled. GYNECOLOGIC HISTORY: 2, para 2. Postmenopausal. ALLERGIES: 1. DEMEROL WHICH CAUSED NAUSEA AND VOMITING. 2. TETRACYCLINES CAUSED ITCHINESS OF THE SKIN AND SICKNESS. CURRENT INPATIENT MEDICATIONS: 1. Lovenox 60 milligrams subcutaneous twice a day. 2. Amlodipine 5 milligrams p.o. daily. 3. Hydrocodone / acetaminophen 5 / 325 milligrams p.o. q. 6 hours. 4. Symbicort one puff twice daily. 5. Hydralazine 25 milligrams p.o. q. 4 hours as needed for hypertension. 6. Ativan 0.5 milligrams p.o. daily as needed for anxiety. 7. Losartan 25 milligrams p.o. daily. 8. Magnesium hydroxide 30 mL p.o. q. 12 hours as needed for constipation. 9. Zofran 4 milligrams IV q. 6 hours as needed for nausea and vomiting. 10. Spiriva 18 micrograms inhaled daily. 11. Prednisone 1 milligram daily. REVIEW OF SYSTEMS: A thirteen point review of systems was obtained and the following are the pertinent positives and negatives: CONSTITUTIONAL: The patient reports fatigue, weakness. She denies fevers, chills, night sweats. She reports weight gain. HEAD, EYES, EARS, NOSE, THROAT: Denies headaches, blurry vision, difficulty swallowing, soreness in the throat. RESPIRATORY: Please see the history of present illness; she reports difficulty breathing, cough, difficulty to expectorate phlegm. CARDIOVASCULAR: Denies classical angina like chest pain. She does report stabbing pain which arises from the midline of the back and radiates anteriorly to the sternum. She reports lower extremity edema. She denies palpitations. GASTROINTESTINAL: Denies nausea, vomiting, diarrhea, hematochezia or melena. GENITOURINARY: Denies dysuria, hematuria, urinary incontinence. 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 MUSCULOSKELETAL: Reports generalized weakness, fatigue and chronic knee pain and lower back pain. PHYSICAL EXAMINATION: VITAL SIGNS: The vital signs reveal a temperature of 97.6 degrees Fahrenheit, heart rate 91 beats per minute, respiratory rate 20, blood pressure 204/93. 02 saturations 99% on two liters nasal cannula. GENERAL PHYSICAL APPEARANCE: Ms. Butler is a middle-aged female. She is short and of moderate build. She has a Cushingoid appearance. She is on nasal cannula in modest respiratory distress. She coughs frequently during this interview. HEAD, EYES, EARS, NOSE, THROAT: Head is atraumatic and normocephalic. Conjunctivae are non-pale. The sclerae are anicteric. ORAL EXAM: No pharyngeal erythema. NECK EXAM: No palpable cervical or supraclavicular lymphadenopathy. RESPIRATORY EXAM: Frequent coughing. Using accessory muscles of breathing. Prolonged expiratory phase. Bilateral and diffuse rhonchi. CARDIOVASCULAR EXAM: Regular rate and rhythm. Loud S1 and S2. No obvious murmurs, rubs or gallops. ABDOMINAL EXAM: Protuberant belly. Soft, nontender and nondistended. No palpable organ enlargement. LOWER EXTREMITIES: Bilateral pre-tibial edema. No calf tenderness. SALES LEDGER CLERK: No focal sensory or motor deficits. SKIN: She has multiple bruises over the forearms. She has chronic tobacco-related skin changes. LABORATORY FINDINGS: Blood work dated 09/05/2016: White blood cell count 3.8, hemoglobin 13.1 grams/dL, hematocrit 39%, platelet count 206,000. Absolute neutrophil count 12.2. Chemistries: Sodium 138, potassium 3.5, chloride 98, bicarbonate 31, BUN 22, creatinine 0.84, random glucose 207, calcium 8.2. D dimer dated 09/04/2016: 0.7 (upper limit of normal 0.5). IMAGING STUDIES: CT angiography of the chest dated 09/04/2016 reveals possible left inferior pulmonary vein thrombosis. Possible elevated right heart pressure with reflux of contrast into the hepatic veins. Echocardiogram dated 09/05/2016: Wall thickness was normal of the left ventricle. Left ventricular systolic function was between 50% and 55%. Pulmonary artery peak pressure was 62 mmHg. ASSESSMENT: Ms. Butler is a 66-year-old female who has COPD, frequent exacerbations and continues to smoke. She also has a history of peripheral arterial disease and has in the past undergone an aortobifemoral bypass graft surgery. The patient came into the hospital with a one-month history of progressive difficulty breathing refractory to oral and parenteral corticosteroids as well as various lines of oral antibiotics including azithromycin. She developed pain involving her chest and back prior to admission accompanied by exertional dyspnea and cough. Upon presentation to the emergency department, she underwent CT angiogram of the chest. CT angiogram revealed findings concerning for a left inferior branch pulmonary vein thrombosis. Please note, the pulmonary arterial system was without evidence of thrombosis with clear flow. In this particular scan, in my assessment, the amount of contrast and the timing of the contrast was such that there was significant washout from the pulmonary arterial system back through to the pulmonary venous system and back to the left atrium. The CT angiogram was reviewed personally as well as with the radiologist as well the hotel lobby concierge. I looked at the scans personally in the axial sections as well as the coronal sections. It appears to me that on the coronal sections, the contrast media seems to be diluted when various pulmonary veins on the left side converge just before entering the left atrium. I suspect the change or the dilution of the contrast is secondary to dilution due to convergence of various blood vessels. A pulmonary venous clot or thrombosis is not obvious to me on this scan. It would be my recommendation to obtain ultrasound Dopplers of the lower extremities as well as consider additional possible imaging modalities to confirm or rule out the presence of pulmonary venous thrombosis. I would like to, however, add that the patient does have an indication for anticoagulation which is moderate to severe pulmonary hypertension with peak pulmonary arterial pressures greater than 60 mmHg. RECOMMENDATIONS: Suspected pulmonary venous thrombosis based on the reading of one of the radiologists. In my opinion, the changes in contrast flow is secondary to dilution of the contrast medium. I would suggest a review of the current scan in question. I do not feel comfortable at this point recommending therapeutic anticoagulation for this indication. Please consider obtaining a different modality scan or consider possible pulmonary or left heart angiogram for further evaluation. However, given these circumstances; i.e., pulmonary hypertension, anticoagulation may be an indication anyway given the pulmonary hypertension. I will however obtain ultrasound Dopplers of the lower extremities to rule out lower extremity deep venous thrombosis. The hematology service will follow along with you. Please call us if you have further questions. MD CARYL Massey /5:15 PM /5:33 PM JIM
--- NOTE | 2016-09-05 19:29 | EKG ---
Date Performed: 09/04/2016 Time Performed: 13:02:08 PTAGE: 66 years EKG: Sinus rhythm Since previous tracing, no significant change noted NORMAL ECG PREVIOUS TRACING : 10/04/2014 07.02 DOCTOR: Favian Ballard Interpretating Date/Time 09/05/2016 19:29:05
--- NOTE | 2016-09-05 23:20 | RADRPT ---
EXAM DATE/TIME: 09/05/2016 21:46 [facility] COMPARISON: No previous studies available for comparison. INDICATIONS : Bilateral leg swelling. MEDICAL HISTORY : Hypercholesterolemia. Chronic obstructive pulmonary disease. Hypertension. Whip lash. Coronary artery disease. Asthma. Pneumonia. Esophogeal dilitation. Ulcer. Anxiety. Measles. SURGICAL HISTORY : Tonsillectomy.Hysterectomy. Appendectomy.Aortofemoral bypass. Tubal ligation. Bronchoscopy. Left knee surgery. Cardiac catheterization. ENCOUNTER: Initial ACUITY: 1 day PAIN SCORE: 0/10 LOCATION: Bilateral legs. TECHNIQUE: Venous ultrasound of the left and right leg was performed from the inguinal ligament to the proximal calf. Real-time, color Doppler and spectral tracing, compression and augmentation techniques were us ed. FINDINGS: RIGHT LEG: There is normal compressibility of the deep venous system from the inguinal region to the proximal ca lf. No echogenic clot is seen in the lumen of the common femoral, femoral, popliteal, and posterior tibial veins. There is a normal response of the venous system to proximal and distal augmentation an d respiration. LEFT LEG: There is normal compressibility of the deep venous system from the inguinal region to the proximal ca lf. No echogenic clot is seen in the lumen of the common femoral, femoral, popliteal, and posterior tibial veins. There is a normal response of the venous system to proximal and distal augmentation an d respiration. CONCLUSION: Normal examination. Praveen Maria MD on September 05, 2016 at 23:18 Board Certified Radiologist. This report was verified electronically.
[2016-09-06] VITALS (14 sets, daily range): BP systolic 141–195; BP diastolic 70–104; PULSE 73–90; RESP 18–20; TEMP 97.7–98.7; O2SAT 94–98
[2016-09-06] MEDS: ACETAMINOPHEN/HYDROcodone 325 MG/5 MG TAB PO PRN ×3 (04:27→20:48)
[2016-09-06] MEDS: RESP: ALBUTEROL 2.5 MG/IPRATROPIUM 0.5 MG NEB (SCH) NEB ×4 (08:03→19:27)
[2016-09-06 09:03] LABS: AUTOMATED NEUTROPHIL # 10.4 TH/MM3 (1.8-7.7); BASOPHIL % 0.1 % (0.0-2.0); EOSINOPHIL # 0.1 TH/MM3 (0-0.4); EOSINOPHIL % 0.4 % (0.0-4.0); HEMATOCRIT 41.2 % (35.0-46.0); LYMPH % 24.3 % (9.0-44.0); LYMPHOCYTE # 3.8 TH/MM3 (1.0-4.8); MEAN CELL VOLUME 92.5 FL (80.0-100.0); MEAN CORPUSCULAR HGB CONC 33.5 % (32.0-36.0); MONO % 7.8 % (0.0-8.0); NEUT % 67.4 % (16.0-70.0); PLATELET COUNT 231 TH/MM3 (150-450); RED BLOOD COUNT 4.45 MIL/MM3 (4.00-5.30); RED CELL DISTRIBUTION WIDTH 14.3 % (11.6-17.2); WHITE BLOOD COUNT 15.5 TH/MM3 (4.0-11.0)
[2016-09-06] MEDS: predniSONE 1 MG TAB PO SCH (09:03)
[2016-09-06] MEDS: ENOXAPARIN SODIUM 60 MG/0.6 ML SYRINGE SQ SCH ×2 (09:03→20:47)
[2016-09-06] MEDS: amLODIPine BESYLATE 5 MG TAB PO SCH (09:03)
[2016-09-06] MEDS: LOSARTAN 25 MG TAB PO SCH (09:03)
[2016-09-06] MEDS: FUROSEMIDE 20 MG/2 ML VIAL IV PUSH SCH (09:05)
[2016-09-06 09:08] LABS: HEMO FLAGS AUTO DIFF
[2016-09-06] MEDS: BUDESONIDE-FORMOTEROL 160/4.5 MCG INHALER INH SCH ×2 (09:09→20:47)
[2016-09-06] MEDS: SODIUM CHLORIDE 0.9% FLUSH 5 ML FLUSH FLUSH SCH ×2 (09:10→20:49)
[2016-09-06] MEDS: TIOTROPIUM BROMIDE 18 MCG INH INH SCH (09:10)
[2016-09-06 09:25] LABS: BICARBONATE 29.9 MEQ/L (21.0-32.0); POTASSIUM 3.3 MEQ/L (3.5-5.1)
[2016-09-06 10:01] LABS: PLATELET ESTIMATE SMEAR NORMAL (NORMAL); PLATELET MORPHOLOGY NORMAL (NORMAL); SCAN/DIFF AUTO DIFF CONFIRMED
--- NOTE | 2016-09-06 11:04 | HHI.PR ---
Subjective Remarks 66yr old female seen and examined today. Still with SOB/wheezing. No CP/fever/NVD. Objective Objective Results - Vital Signs Date Time Temp Pulse Resp B/P Pulse Ox O2 Delivery O2 Flow Rate FiO2 09/06/16 08:05 98 Nasal Cannula 2.00 09/06/16 08:00 98.4 73 18 152/84 97 09/06/16 04:20 97.7 77 18 141/70 95 09/06/16 00:00 98.6 80 18 148/74 98 09/05/16 21:12 98 Nasal Cannula 2.00 09/05/16 20:27 98.2 95 22 150/70 95 09/05/16 20:22 84 09/05/16 16:00 98.4 85 18 144/72 98 09/05/16 15:44 99 Nasal Cannula 2.00 09/05/16 12:00 97.6 91 20 204/93 97 184/88 I/O 09/05/16 09/05/16 09/05/16 09/06/16 09/06/16 09/06/16 07:00 15:00 23:00 07:00 15:00 23:00 Intake Total 500 ml 846 ml 520 ml 720 ml Balance 500 ml 846 ml 520 ml 720 ml Intake Oral 500 ml 840 ml 520 ml 720 ml IV Total 6 ml # Voids 2 3 2 4 # Bowel Movements 0 0 0 0 Result Diagram: 09/06/16 0709/06/16 0721 Other Results Laboratory Tests Test 09/06/16 07:21 White Blood Count 15.5 Red Blood Count 4.45 Hemoglobin 13.8 Hematocrit 41.2 Mean Corpuscular Volume 92.5 Mean Corpuscular Hemoglobin 31.0 Mean Corpuscular Hemoglobin 33.5 Concent Red Cell Distribution Width 14.3 Platelet Count 231 Mean Platelet Volume 7.6 Neutrophils (%) (Auto) 67.4 Lymphocytes (%) (Auto) 24.3 Monocytes (%) (Auto) 7.8 Eosinophils (%) (Auto) 0.4 Basophils (%) (Auto) 0.1 Neutrophils # (Auto) 10.4 Lymphocytes # (Auto) 3.8 Monocytes # (Auto) 1.2 Eosinophils # (Auto) 0.1 Basophils # (Auto) 0.0 CBC Comment AUTO DIFF Differential Comment AUTO DIFF CONFIRMED Platelet Estimate NORMAL Platelet Morphology Comment NORMAL Red Cell Morphology Comment NORMAL Sodium Level 137 Potassium Level 3.3 Chloride Level 97 Carbon Dioxide Level 29.9 Anion Gap 10 Blood Urea Nitrogen 26 Creatinine 0.91 Estimat Glomerular Filtration 62 Rate Random Glucose 96 Calcium Level 8.3 Date/Time Procedure Status Source Growth 09/04/16 13:40 Influenza Types A,B Antigen ([facility]) - Final Complete Nasal Washing NEGATIVE FOR FLU A AND B ANTIGEN.... 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 She is alert and awake HEAD: Normocephalic without any lesion or mass noted. Facial features appear symmetric. EYES: Perrla, Normal eye movement no Icterus. Conj congestion. OROPHARYNGEAL: Oropharynx without erythema or edema. MOUTH/THROAT: Tongue midline . Buccal mucosa is moist. NECK: Supple. No nuchal rigidity or lymphadenopathy. Trachea midline without deviation. CARDIAC: Regular rhythm, regular rate, S1 and S2 are heard. No murmur. LUNGS: Naveed wheezing/rhonchi. No rales. ABDOMEN: Soft, nontender, no organomegaly or masses. Bowel sounds are heard in all four quadrants. No rebound. No guarding. EXTREMITIES: Trace pedal edema. Pulses equal bilateral. no cyanosis. NEUROLOGICAL: No focal deficits. SKIN:Warm and moist PSYCH: Mood and affect appropriate A/P Assessment and Plan Assessment: Pulmonary vein thrombosis COPD exacerbation. Dyspnea Bilateral lower extremity edema Possible elevated right heart pressure Reflux of contrast into the hepatic vein Management Admited to PCU Lovenox 1 mg/kg subcutaneous every 12 hours Solu-Medrol Supplemental oxygen Bronchodilators as needed Rocephin Continue home medications Serial CKs and troponins 2-D echocardiogram: 09/05/16: EF 50-55%, normal wall motion. US naveed LE: neg for DVT. Pain control Added lasix 20mg IV daily. Monitor BP closely. Discontinue smoking Appreciate cardiology/hematology input. Discussed with patient Discussed with RN CBC, BMP in am Yoni Menendez MD Sep 06, 2016 11:04 Yoni Menendez MD Sep 06, 2016 11:04
[2016-09-06] MEDS: SENNOSIDES 8.6 MG TAB PO PRN (11:54)
[2016-09-06] MEDS: PANTOPRAZOLE SOD 20 MG DELAYED RELEASE TAB PO SCH (14:33)
[2016-09-06] MEDS: methylPREDNISolone SOD SUCC 125 MG/2 ML VIAL IV PUSH SCH ×2 (14:33→20:47)
[2016-09-06] MEDS: cefTRIAXone INJ 1,000 MG in SODIUM CHLORIDE 0.9% INJ 100 ML IV SCH (14:34)
[2016-09-06] MEDS: NICOTINE 21 MG/24 HR PATCH TD SCH (18:00)
[2016-09-06] MEDS: LORazepam 0.5 MG TAB PO PRN (20:48)
[2016-09-06] MEDS: REMOVE OLD NICODERM (NICOTINE) PATCH TD SCH (20:49)
[2016-09-06] MEDS: cloNIDine HCL 0.1 MG TAB PO PRN (21:13)
[2016-09-06] MEDS: hydrALAZINE HCL 25 MG TAB PO PRN (22:13)
[2016-09-06] MEDS: ENALAPRILAT 1.25 MG/ML VIAL IV PUSH PRN (23:07)
[2016-09-07] VITALS (11 sets, daily range): BP systolic 164–189; BP diastolic 78–92; PULSE 79–95; RESP 18–26; TEMP 97.7–98.5; O2SAT 94–98
[2016-09-07 07:13] LABS: HEMATOCRIT 38.9 % (35.0-46.0); MEAN CELL VOLUME 91.8 FL (80.0-100.0); MEAN CORPUSCULAR HEMOGLOBIN 31.6 PG (27.0-34.0); MEAN CORPUSCULAR HGB CONC 34.4 % (32.0-36.0); PLATELET COUNT 207 TH/MM3 (150-450); RED BLOOD COUNT 4.24 MIL/MM3 (4.00-5.30); RED CELL DISTRIBUTION WIDTH 14.4 % (11.6-17.2); REVIEW FLAG FINAL
[2016-09-07 07:41] LABS: BICARBONATE 28.2 MEQ/L (21.0-32.0); POTASSIUM 3.4 MEQ/L (3.5-5.1)
[2016-09-07] MEDS: TIOTROPIUM BROMIDE 18 MCG INH INH SCH (08:27)
[2016-09-07] MEDS: BUDESONIDE-FORMOTEROL 160/4.5 MCG INHALER INH SCH ×2 (08:27→20:38)
[2016-09-07] MEDS: NICOTINE 21 MG/24 HR PATCH TD SCH (08:28)
[2016-09-07] MEDS: amLODIPine BESYLATE 5 MG TAB PO SCH (08:28)
[2016-09-07] MEDS: predniSONE 1 MG TAB PO SCH (08:28)
[2016-09-07] MEDS: MAGNESIUM HYDROXIDE SUSP 30 ML CUP PO PRN (08:28)
[2016-09-07] MEDS: PANTOPRAZOLE SOD 20 MG DELAYED RELEASE TAB PO SCH (08:28)
[2016-09-07] MEDS: ENOXAPARIN SODIUM 60 MG/0.6 ML SYRINGE SQ SCH ×2 (08:28→20:36)
[2016-09-07] MEDS: LOSARTAN 25 MG TAB PO SCH (08:28)
[2016-09-07] MEDS: methylPREDNISolone SOD SUCC 125 MG/2 ML VIAL IV PUSH SCH ×2 (08:29→20:36)
[2016-09-07] MEDS: SODIUM CHLORIDE 0.9% FLUSH 5 ML FLUSH FLUSH SCH ×2 (08:29→20:37)
[2016-09-07] MEDS: FUROSEMIDE 20 MG/2 ML VIAL IV PUSH SCH (08:29)
[2016-09-07] MEDS: RESP: ALBUTEROL 2.5 MG/IPRATROPIUM 0.5 MG NEB (SCH) NEB ×4 (08:33→19:19)
[2016-09-07] MEDS: cloNIDine HCL 0.1 MG TAB PO PRN ×2 (09:50→22:26)
[2016-09-07] MEDS: hydrALAZINE HCL 25 MG TAB PO PRN (13:23)
[2016-09-07] MEDS: cefTRIAXone INJ 1,000 MG in SODIUM CHLORIDE 0.9% INJ 100 ML IV SCH (13:23)
[2016-09-07] MEDS ORDERED: POTASSIUM CL 40 MEQ/30 ML LIQ UDC PO ONE (14:00)
--- NOTE | 2016-09-07 15:52 | HHI.PR ---
Subjective Subjective Remarks coughing, now bringing up secretion still wheezing no cp sob with activity, just walking to bathroom eating okay no n/v Nicotine patch is helping, asking about electronic cigarettes no fever Review of Systems Constitutional Constitutional Remarks 12 point review of systems completed, negative except as noted above Vitals/Results Intake & Output 09/06/16 09/06/16 09/07/16 15:00 23:00 07:00 Intake Total 1920 ml Balance 1920 ml Intake Oral 1920 ml # Voids 5 4 # Bowel Movements 0 Vital Signs Vital Signs Date Time Temp Pulse Resp B/P Pulse Ox O2 Delivery O2 Flow Rate FiO2 09/07/16 12:00 98.0 94 20 181/81 94 09/07/16 10:40 79 09/07/16 08:33 98 Nasal Cannula 2.00 09/07/16 08:00 98.0 82 20 189/92 97 09/07/16 04:00 98.0 87 26 164/92 97 09/07/16 00:00 97.8 84 20 169/80 98 09/06/16 23:45 156/82 09/06/16 23:05 184/92 09/06/16 22:10 188/100 09/06/16 21:10 194/104 09/06/16 20:20 88 09/06/16 20:20 90 09/06/16 20:00 98.0 83 18 195/91 97 09/06/16 19:27 94 Nasal Cannula 2.00 09/06/16 16:00 98.6 80 18 182/84 95 178/86 CBC/BMP: 09/07/16 0545 09/07/16 0545 Lab Results Laboratory Tests Test 09/07/16 05:45 White Blood Count 15.0 TH/MM3 Red Blood Count 4.24 MIL/MM3 Hemoglobin 13.4 GM/DL Hematocrit 38.9 % Mean Corpuscular Volume 91.8 FL Mean Corpuscular Hemoglobin 31.6 PG Mean Corpuscular Hemoglobin 34.4 % Concent Red Cell Distribution Width 14.4 % Platelet Count 207 TH/MM3 Mean Platelet Volume 8.1 FL Sodium Level 138 MEQ/L Potassium Level 3.4 MEQ/L Chloride Level 99 MEQ/L Carbon Dioxide Level 28.2 MEQ/L Anion Gap 11 MEQ/L Blood Urea Nitrogen 26 MG/DL Creatinine 0.79 MG/DL Estimat Glomerular Filtration 73 ML/MIN Rate Random Glucose 221 MG/DL Calcium Level 8.3 MG/DL Physical Exam General General Appearance: Well Developed, No Acute Distress, Comfortable Eyes Eye Exam: Pupils Equal, Pupils Reactive Ears & Nose Ears & Nose Exam: Nasal Mucosa [place] Throat Throat Exam: Oral Mucosa [place] & Moist Neck Neck Exam: Neck Supple, Trachea Midline Pulmonary Resp Exam: Crackles, Rhonchi Resp Remarks exp. wheezes Cardiology CV Exam: Regular Gastrointestinal/Abdomen GI Exam: Soft, Non-Tender, Bowel Sounds Present, Non-Distended Musculoskeletal MS Exam: Joints Intact Integumentary Skin Exam: Warm, Dry Extremeties Extremities Exam: Pedal Pulses Palpable, Trace Edema Neurologic Neuro Exam: Alert, Awake, Oriented, Speech Clear, Moving All Extremities, No Focal Deficits Psychiatric Psych Exam: Appropriate Responses VTE Prophylaxis VTE Prophylaxis Meds: Lovenox Assessment/Plan Problem List: (1) COPD exacerbation (2) PVD (peripheral vascular disease) with claudication (3) Low back pain potentially associated with radiculopathy (4) Hypertension (5) Pulmonary embolism (6) Tobacco abuse (7) Bronchitis (8) Hx of aorto-femoral bypass (9) GERD (gastroesophageal reflux disease) (10) CAD (coronary artery disease) (11) CHF (congestive heart failure) (12) Pulmonary hypertension Assessment/Plan Continue with empiric antibiotics, supplemental oxygen, DuoNeb's, IV Solu-Medrol Monitor sats Tobacco abuse counseling Continue with nicotine patch Continue with antitussives when necessary Continue with Spiriva, Symbicort Will add Mucinex 200 mg by mouth twice a day Appreciate hematology input, he has reviewed the imaging studies in detail, no evidence Per hematology input, he believes there are changes in contrast flow secondary to dilution of the contrast medium Does not feel comfortable recommending therapeutic anticoagulation for this indication, consider obtaining a different modality scan or consider possible pulmonary or left heart angiogram for further evaluation. However, given that there is evidence of pulmonary hypertension, anticoagulation may be an indication anyway given the pulmonary hypertension Ultrasound of lower extremities was recommended, this has been done and is negative. At this time we will continue with Lovenox 60 mg subcutaneous twice a day until further recommendations Patient states that she does not have health insurance therefore if she needs to go home on anticoagulation she is willing to try warfarin. Appreciate cardiology input, not reviewed Echocardiogram has been completed, EF 50-55% Blood pressure noted poorly controlled We will start hydralazine 25 mg by mouth before every meal Increase Cozaar to 50 mg by mouth daily Continue Norvasc Clonidine when necessary Continue with Lasix 20 mg IV daily, will change to by mouth in the morning Monitor electrode Continue with Lovenox for DVT prophylaxis PPI for GI prophylaxis Replace K Blood glucose elevated, likely secondary to steroids-we'll check hemoglobin A1c Possible discharge 1-2 days, we'll wait for further recommendations whether anticoagulation is needed from hematology or cardiology D/W RN D/W pt D/W Dr. Jeter This patient was seen by myself in Dr. Jetre, this note is written on his behalf Problem Qualifiers (1) Hypertension: Qualified Code: I10 - Essential hypertension (2) Pulmonary embolism: Qualified Code: I26.99 - Other acute pulmonary embolism without acute cor pulmonale (3) GERD (gastroesophageal reflux disease): Qualified Code: K21.9 - Gastroesophageal reflux disease without esophagitis (4) CAD (coronary artery disease): Qualified Code: I25.10 - Coronary artery disease involving nikolai coronary artery of nikolai heart without angina pectoris (5) CHF (congestive heart failure): Qualified Code: I50.9 - Acute congestive heart failure, unspecified congestive heart failure type Cathi Mclean Sep 07, 2016 15:52
[2016-09-07] MEDS: SENNOSIDES 8.6 MG TAB PO PRN (18:33)
[2016-09-07] MEDS: ACETAMINOPHEN/HYDROcodone 325 MG/5 MG TAB PO PRN (20:36)
[2016-09-07] MEDS: guaiFENesin E.R. 600 MG TAB PO SCH (20:36)
[2016-09-07] MEDS: hydrALAZINE HCL 25 MG TAB PO SCH (20:37)
[2016-09-07] MEDS: REMOVE OLD NICODERM (NICOTINE) PATCH TD SCH (20:37)
[2016-09-07] MEDS: LORazepam 0.5 MG TAB PO PRN (20:37)
[2016-09-07] MEDS: NIFEdipine 60 MG SUSTAINED RELEASE TAB PO SCH (20:37)
[2016-09-08] VITALS (11 sets, daily range): BP systolic 115–189; BP diastolic 65–90; PULSE 77–97; RESP 16–20; TEMP 96.7–98.7; O2SAT 94–98
[2016-09-08] MEDS: ENALAPRILAT 1.25 MG/ML VIAL IV PUSH PRN (00:08)
[2016-09-08] MEDS: hydrALAZINE HCL 25 MG TAB PO SCH ×3 (06:23→22:08)
[2016-09-08] MEDS: RESP: ALBUTEROL 2.5 MG/IPRATROPIUM 0.5 MG NEB (SCH) NEB ×4 (08:16→18:52)
[2016-09-08] MEDS: PANTOPRAZOLE SOD 20 MG DELAYED RELEASE TAB PO SCH (08:48)
[2016-09-08] MEDS: NIFEdipine 60 MG SUSTAINED RELEASE TAB PO SCH (08:48)
[2016-09-08] MEDS: methylPREDNISolone SOD SUCC 125 MG/2 ML VIAL IV PUSH SCH (08:48)
[2016-09-08] MEDS: LOSARTAN 50 MG TAB PO SCH (08:48)
[2016-09-08] MEDS: guaiFENesin E.R. 600 MG TAB PO SCH ×2 (08:49→20:04)
[2016-09-08] MEDS: ENOXAPARIN SODIUM 60 MG/0.6 ML SYRINGE SQ SCH ×2 (08:49→20:05)
[2016-09-08] MEDS: FUROSEMIDE 20 MG/2 ML VIAL IV PUSH SCH (08:49)
[2016-09-08] MEDS: TIOTROPIUM BROMIDE 18 MCG INH INH SCH (08:49)
[2016-09-08] MEDS: SODIUM CHLORIDE 0.9% FLUSH 5 ML FLUSH FLUSH SCH ×2 (08:49→20:03)
[2016-09-08] MEDS: NICOTINE 21 MG/24 HR PATCH TD SCH (08:49)
[2016-09-08] MEDS: BUDESONIDE-FORMOTEROL 160/4.5 MCG INHALER INH SCH ×2 (08:49→20:04)
[2016-09-08] MEDS: ACETAMINOPHEN/HYDROcodone 325 MG/5 MG TAB PO PRN ×2 (11:28→22:09)
[2016-09-08] MEDS: POTASSIUM BICARBONATE 25 MEQ EFFERVESCENT TAB PO SCH (11:31)
[2016-09-08] MEDS: cloNIDine HCL 0.1 MG TAB PO PRN (12:01)
--- NOTE | 2016-09-08 13:50 | HHI.PR ---
Subjective Subjective Remarks coughing,bringing up secretions anxious about BP, discharge no cp still SOB with activity reluctant to quit smoking no fever Review of Systems Constitutional Constitutional Remarks 12 point review of systems completed, negative except as noted above Vitals/Results Intake & Output 09/07/16 09/07/16 09/08/16 15:00 23:00 07:00 Intake Total 1560 ml 240 ml 480 ml Balance 1560 ml 240 ml 480 ml Intake Oral 1560 ml 240 ml 480 ml # Voids 6 1 3 # Bowel Movements 1 0 0 Vital Signs Vital Signs Date Time Temp Pulse Resp B/P Pulse Ox O2 Delivery O2 Flow Rate FiO2 09/08/16 12:00 98.6 97 20 189/90 94 185/80 09/08/16 08:59 77 09/08/16 08:18 98 Nasal Cannula 2.00 09/08/16 08:00 97.3 89 20 167/83 96 09/08/16 04:00 97.9 85 18 130/81 95 09/08/16 00:00 97.5 87 18 180/88 96 09/07/16 22:02 182/90 09/07/16 21:00 89 09/07/16 20:00 97.7 89 18 185/87 95 09/07/16 19:20 98 Nasal Cannula 2.00 09/07/16 16:00 98.5 95 20 169/78 96 CBC/BMP: 09/07/16 0545 09/07/16 0545 Physical Exam General General Appearance: Well Developed, No Acute Distress, Comfortable Eyes Eye Exam: Pupils Equal, Pupils Reactive Ears & Nose Ears & Nose Exam: Nasal Mucosa [place] Throat Throat Exam: Oral Mucosa [place] & Moist Neck Neck Exam: Neck Supple, Trachea Midline Pulmonary Resp Exam: Crackles, Rhonchi Resp Remarks exp. wheezes Cardiology CV Exam: Regular Gastrointestinal/Abdomen GI Exam: Soft, Non-Tender, Bowel Sounds Present, Non-Distended Musculoskeletal MS Exam: Joints Intact Integumentary Skin Exam: Warm, Dry Extremeties Extremities Exam: Pedal Pulses Palpable, Trace Edema Neurologic Neuro Exam: Alert, Awake, Oriented, Speech Clear, Moving All Extremities, No Focal Deficits Psychiatric Psych Exam: Appropriate Responses VTE Prophylaxis VTE Prophylaxis Meds: Lovenox Assessment/Plan Problem List: (1) COPD exacerbation (2) PVD (peripheral vascular disease) with claudication (3) Low back pain potentially associated with radiculopathy (4) Hypertension (5) Pulmonary embolism (6) Tobacco abuse (7) Bronchitis (8) Hx of aorto-femoral bypass (9) GERD (gastroesophageal reflux disease) (10) CAD (coronary artery disease) (11) CHF (congestive heart failure) (12) Pulmonary hypertension Assessment/Plan Continue with empiric antibiotics, supplemental oxygen, DuoNeb's change to PO steroids Monitor sats Tobacco abuse counseling Continue with nicotine patch Continue with antitussives when necessary Continue with Spiriva, Symbicort Continue with Mucinex 200 mg by mouth twice a day Appreciate hematology input, he has reviewed the imaging studies in detail, no evidence Per hematology input, he believes there are changes in contrast flow secondary to dilution of the contrast medium Does not feel comfortable recommending therapeutic anticoagulation for this indication, consider obtaining a different modality scan or consider possible pulmonary or left heart angiogram for further evaluation. However, given that there is evidence of pulmonary hypertension, anticoagulation may be an indication anyway given the pulmonary hypertension Ultrasound of lower extremities was recommended, this has been done and is negative. At this time we will continue with Lovenox 60 mg subcutaneous twice a day until further recommendations Patient states that she does not have health insurance therefore if she needs to go home on anticoagulation she is willing to try warfarin. Appreciate cardiology input, not reviewed Echocardiogram has been completed, EF 50-55% Blood pressure noted poorly controlled Increase hydralazine 50 mg by mouth before every meal Continue Cozaar to 50 mg by mouth daily Norvasc D/C, on Procardia now Clonidine when necessary anxiety may be playing a role in BP, will increase Ativan to 8 PRN change to PO Lasix Monitor lytes Continue with Lovenox for DVT prophylaxis PPI for GI prophylaxis Blood glucose elevated, likely secondary to steroids-we'll check hemoglobin A1c Not ready for dc yet, we'll wait for further recommendations whether anticoagulation is needed from hematology or cardiology D/W RN D/W pt D/W Dr. Jeter This patient was seen by myself in Dr. Jeter, this note is written on his behalf Problem Qualifiers (1) Hypertension: Qualified Code: I10 - Essential hypertension (2) Pulmonary embolism: Qualified Code: I26.99 - Other acute pulmonary embolism without acute cor pulmonale (3) GERD (gastroesophageal reflux disease): Qualified Code: K21.9 - Gastroesophageal reflux disease without esophagitis (4) CAD (coronary artery disease): Qualified Code: I25.10 - Coronary artery disease involving [place] coronary artery of [place] heart without angina pectoris (5) CHF (congestive heart failure): Qualified Code: I50.9 - Acute congestive heart failure, unspecified congestive heart failure type Cathi Mclean Sep 08, 2016 13:50
[2016-09-08 14:00] LABS: HEMOGLOBIN A1a 0.8 %; HEMOGLOBIN A1b 2.3 %; HEMOGLOBIN Ao 82.3 %; HEMOGLOBIN LA1C 2.9 %; HEMOGLOBIN P3 4.8 %
[2016-09-08] MEDS: FLUCONAZOLE 100 MG TAB PO SCH (14:06)
[2016-09-08] MEDS: cefTRIAXone INJ 1,000 MG in SODIUM CHLORIDE 0.9% INJ 100 ML IV SCH (14:07)
[2016-09-08] MEDS: predniSONE 20 MG TAB PO SCH (20:04)
[2016-09-08] MEDS: REMOVE OLD NICODERM (NICOTINE) PATCH TD SCH (20:05)
[2016-09-08] MEDS: LORazepam 0.5 MG TAB PO PRN (20:12)
--- NOTE | 2016-09-08 21:09 | RADRPT ---
EXAM DATE/TIME: 09/08/2016 20:42 [facility] COMPARISON: No previous studies available for comparison. INDICATIONS : Distention MEDICAL HISTORY : Chronic obstructive pulmonary disease. Hypertension SURGICAL HISTORY : None. ENCOUNTER: Initial ACUITY: 4 - 6 days PAIN SCORE: 0/10 LOCATION: Bilateral Abdomen FINDINGS: Moderate stool throughout the colon. No small bowel distention. No free air. No abnormal calcificatio ns are demonstrated. CONCLUSION: Nonobstructive bowel gas pattern. Moderate stool in the colon. Praveen Frias MD on September 08, 2016 at 21:07 Board Certified Radiologist. This report was verified electronically.
[2016-09-08] MEDS: SENNOSIDES 8.6 MG TAB PO PRN (22:13)
[2016-09-09] VITALS (7 sets, daily range): BP systolic 120–152; BP diastolic 64–75; PULSE 84–92; RESP 18–21; TEMP 97.2–98; O2SAT 94–97
[2016-09-09] MEDS: hydrALAZINE HCL 25 MG TAB PO SCH ×3 (05:32→21:48)
[2016-09-09] MEDS: RESP: ALBUTEROL 2.5 MG/IPRATROPIUM 0.5 MG NEB (SCH) NEB ×2 (07:32→11:06)
[2016-09-09 08:06] LABS: BICARBONATE 27.9 MEQ/L (21.0-32.0); POTASSIUM 4.2 MEQ/L (3.5-5.1)
[2016-09-09] MEDS: SODIUM CHLORIDE 0.9% FLUSH 5 ML FLUSH FLUSH SCH ×2 (08:55→21:56)
[2016-09-09] MEDS: BUDESONIDE-FORMOTEROL 160/4.5 MCG INHALER INH SCH ×2 (08:55→21:50)
[2016-09-09] MEDS: TIOTROPIUM BROMIDE 18 MCG INH INH SCH (08:55)
[2016-09-09] MEDS: predniSONE 20 MG TAB PO SCH (08:56)
[2016-09-09] MEDS: LOSARTAN 50 MG TAB PO SCH (08:56)
[2016-09-09] MEDS: PANTOPRAZOLE SOD 20 MG DELAYED RELEASE TAB PO SCH (08:57)
[2016-09-09] MEDS: guaiFENesin E.R. 600 MG TAB PO SCH ×2 (08:57→21:49)
[2016-09-09] MEDS: NIFEdipine 60 MG SUSTAINED RELEASE TAB PO SCH (08:57)
[2016-09-09] MEDS: NICOTINE 21 MG/24 HR PATCH TD SCH (08:57)
[2016-09-09] MEDS: ENOXAPARIN SODIUM 60 MG/0.6 ML SYRINGE SQ SCH ×2 (08:58→21:55)
[2016-09-09] MEDS: FLUCONAZOLE 100 MG TAB PO SCH (08:59)
[2016-09-09] MEDS: POTASSIUM BICARBONATE 25 MEQ EFFERVESCENT TAB PO SCH ×2 (09:00→21:49)
[2016-09-09] MEDS ORDERED: FUROSEMIDE 20 MG TAB PO SCH (09:00)
[2016-09-09] MEDS: MAGNESIUM HYDROXIDE SUSP 30 ML CUP PO PRN (12:07)
--- NOTE | 2016-09-09 13:47 | HHI.PR ---
Subjective Subjective Remarks less sob with exertion less cough and wheezing c/o abd. distended, xray benign mod stool in colon drinking Doctor Pepper about 4 cans a day no diarrhea thinks is fluid from her lungs Review of Systems Constitutional Constitutional Remarks 12 point review of systems completed, negative except as noted above Vitals/Results Intake & Output 09/08/16 09/08/16 09/09/16 15:00 23:00 07:00 Intake Total 960 ml 420 ml 480 ml Balance 960 ml 420 ml 480 ml Intake Oral 960 ml 420 ml 480 ml # Voids 3 2 3 # Bowel Movements 0 0 0 Vital Signs Vital Signs Date Time Temp Pulse Resp B/P Pulse Ox O2 Delivery O2 Flow Rate FiO2 09/09/16 07:35 97 Nasal Cannula 2.00 09/09/16 04:00 98.0 85 18 147/75 95 09/09/16 00:00 97.6 84 18 126/75 97 09/08/16 20:00 98.7 85 17 115/65 97 09/08/16 19:33 94 Nasal Cannula 2.00 09/08/16 18:53 94 Nasal Cannula 2.00 09/08/16 18:52 124/66 09/08/16 16:23 96.7 16 134/68 97 CBC/BMP: 09/07/16 0545 09/09/16 0610 Lab Results Laboratory Tests Test 09/09/16 06:10 Sodium Level 137 MEQ/L Potassium Level 4.2 MEQ/L Chloride Level 100 MEQ/L Carbon Dioxide Level 27.9 MEQ/L Anion Gap 9 MEQ/L Blood Urea Nitrogen 24 MG/DL Creatinine 0.87 MG/DL Estimat Glomerular Filtration 66 ML/MIN Rate Random Glucose 196 MG/DL Calcium Level 8.5 MG/DL Physical Exam General General Appearance: Well Developed, No Acute Distress, Comfortable Eyes Eye Exam: Pupils Equal, Pupils Reactive Ears & Nose Ears & Nose Exam: Nasal Mucosa [place] Throat Throat Exam: Oral Mucosa [place] & Moist Neck Neck Exam: Neck Supple, Trachea Midline Pulmonary Resp Exam: Rhonchi Resp Remarks exp. wheezes Cardiology CV Exam: Regular Gastrointestinal/Abdomen GI Exam: Soft, Non-Tender, Bowel Sounds Present, Non-Distended Musculoskeletal MS Exam: Joints Intact Integumentary Skin Exam: Warm, Dry Extremeties Extremities Exam: Pedal Pulses Palpable, Trace Edema Neurologic Neuro Exam: Alert, Awake, Oriented, Speech Clear, Moving All Extremities, No Focal Deficits Psychiatric Psych Exam: Appropriate Responses VTE Prophylaxis VTE Prophylaxis Meds: Lovenox Assessment/Plan Problem List: (1) COPD exacerbation (2) PVD (peripheral vascular disease) with claudication (3) Low back pain potentially associated with radiculopathy (4) Hypertension (5) Pulmonary embolism (6) Tobacco abuse (7) Bronchitis (8) Hx of aorto-femoral bypass (9) GERD (gastroesophageal reflux disease) (10) CAD (coronary artery disease) (11) CHF (congestive heart failure) (12) Pulmonary hypertension Assessment/Plan Continue with empiric antibiotics, supplemental oxygen, DuoNeb's change to PO steroids Monitor sats Tobacco abuse counseling Continue with nicotine patch Continue with antitussives when necessary Continue with Spiriva, Symbicort Continue with Mucinex 200 mg by mouth twice a day Appreciate hematology input, he has reviewed the imaging studies in detail, no evidence Per hematology input, he believes there are changes in contrast flow secondary to dilution of the contrast medium Does not feel comfortable recommending therapeutic anticoagulation for this indication, consider obtaining a different modality scan or consider possible pulmonary or left heart angiogram for further evaluation. However, given that there is evidence of pulmonary hypertension, anticoagulation may be an indication anyway given the pulmonary hypertension Ultrasound of lower extremities was recommended, this has been done and is negative. CTA chest repeated 09/09, smaller thrombus inf. pulm vein continue Lovenox Appreciate cardiology input, not reviewed Echocardiogram has been completed, EF 50-55% C/O abd. distension, ? fluid overload, change to Lasix 40 mg IV BID abd. xray results noted, mod stool fluid restriction d/w pt need to restrict soda use. States she only drinks 4, emphasized fluid restriction. I'm afraid pt. will do what she wants Blood pressure improved continue with hydralazine/Cozaar/Procardia Clonidine PRN Anxiety continue with Ativan PRN Continue with Lovenox for DVT prophylaxis PPI for GI prophylaxis Hgb A1c okay will need anticoagulation, can only afford Coumadin not ready for dc yet Labs in am D/W RN D/W pt D/W Dr. Jeter This patient was seen by myself in Dr. Jeter, this note is written on his behalf Problem Qualifiers (1) Hypertension: Qualified Code: I10 - Essential hypertension (2) Pulmonary embolism: Qualified Code: I26.99 - Other acute pulmonary embolism without acute cor pulmonale (3) GERD (gastroesophageal reflux disease): Qualified Code: K21.9 - Gastroesophageal reflux disease without esophagitis (4) CAD (coronary artery disease): Qualified Code: I25.10 - Coronary artery disease involving [place] coronary artery of [place] heart without angina pectoris (5) CHF (congestive heart failure): Qualified Code: I50.9 - Acute congestive heart failure, unspecified congestive heart failure type Cathi Mclean [facility] Sep 09, 2016 13:47
[2016-09-09] MEDS ORDERED: IOHEXOL 350 MG/ML 10 ML VIAL (for RAD DIAG) IV ONE (14:37)
--- NOTE | 2016-09-09 14:59 | RADRPT ---
EXAM DATE/TIME: 09/09/2016 14:00 [facility] COMPARISON: CT PULMONARY ANGIOGRAM, September 04, 2016, 17:11. INDICATIONS : Short of breath IV CONTRAST: 70 cc Omnipaque 350 (iohexol) IV RADIATION DOSE: 23.25 CTDIvol (mGy) MEDICAL HISTORY : Cardiovascular disease. Hypertension. SURGICAL HISTORY : Hysterectomy. Appendectomy. ENCOUNTER: Initial ACUITY: 1 day PAIN SCALE: 5/10 LOCATION: chest TECHNIQUE: Volumetric scanning of the chest was performed using a pulmonary embolism protocol MIP images were re constructed. Using automated exposure control and adjustment of the mA and/or kV according to patien t size, radiation dose was kept as low as reasonably achievable to obtain optimal diagnostic quality images. FINDINGS: PULMONARY ARTERIES: No filling defects are seen in the pulmonary arteries through the segmental level. Thrombus is again seen in the left inferior pulmonary vein. It appears mildly less extensive than on the comparison. LUNGS: Mild right middle lobe atelectasis again noted. PLEURAE: There is no pleural thickening or pleural effusion. MEDIASTINUM: There is good visualization of the great vessels of the middle mediastinum. No evidence of mediastin al or hilar adenopathy/mass. MUSCULOSKELETAL: Within normal limits for patient age. MISCELLANEOUS: The visualized upper abdominal organs demonstrate no acute abnormality. CONCLUSION: 1. No pulmonary embolus. 2. Persistent but slightly smaller thrombosis of the left inferior pulmonary vein. 3. No significant change focal right middle lobe consolidation. Praveen Frias MD on September 09, 2016 at 14:49 Board Certified Radiologist. This report was verified electronically.
--- NOTE | 2016-09-09 15:12 | RADRPT ---
EXAM DATE/TIME: 09/09/2016 13:17 [facility] COMPARISON: No previous studies available for comparison. INDICATIONS : Abdominal distention. MEDICAL HISTORY : Hypercholesterolemia. Hypertension. Chronic obstructive pulmonary disease. Coronary artery disease. SURGICAL HISTORY : Tonsillectomy. Tubal ligation. Hysterectomy. Cardiac catheterization. Open aorta-femoral bypass. Lef t knee surgery. ENCOUNTER: Initial ACUITY: 1 day PAIN SCORE: 0/10 LOCATION: Abdomen. AREA EVALUATED: Abdomen. FINDINGS: Imaging of the abdomen and pelvis was performed to evaluate for ascites for possible paracentesis. N o free fluid is visualized. CONCLUSION: No free fluid is visualized. Praveen Martin MD on September 09, 2016 at 15:10 Board Certified Radiologist. This report was verified electronically.
[2016-09-09] MEDS: cefTRIAXone INJ 1,000 MG in SODIUM CHLORIDE 0.9% INJ 100 ML IV SCH (16:08)
[2016-09-09] MEDS: FUROSEMIDE 40 MG/4 ML VIAL IV PUSH SCH ×2 (16:08→21:54)
[2016-09-09] MEDS: REMOVE OLD NICODERM (NICOTINE) PATCH TD SCH (21:00)
[2016-09-09] MEDS: predniSONE 10 MG TAB PO SCH (21:48)
[2016-09-09] MEDS: LORazepam 0.5 MG TAB PO PRN (21:49)
[2016-09-09] MEDS: ACETAMINOPHEN/HYDROcodone 325 MG/5 MG TAB PO PRN (21:53)
[2016-09-10] VITALS (7 sets, daily range): BP systolic 126–167; BP diastolic 68–86; PULSE 77–94; RESP 18–22; TEMP 97.6–98.8; O2SAT 93–97
[2016-09-10] MEDS: hydrALAZINE HCL 25 MG TAB PO SCH ×3 (05:58→21:35)
[2016-09-10] MEDS: SODIUM CHLORIDE 0.9% FLUSH 5 ML FLUSH FLUSH SCH ×2 (09:03→21:00)
[2016-09-10] MEDS: FUROSEMIDE 40 MG/4 ML VIAL IV PUSH SCH (09:04)
[2016-09-10] MEDS: BUDESONIDE-FORMOTEROL 160/4.5 MCG INHALER INH SCH ×2 (09:04→21:39)
[2016-09-10] MEDS: TIOTROPIUM BROMIDE 18 MCG INH INH SCH (09:04)
[2016-09-10] MEDS: LOSARTAN 50 MG TAB PO SCH (09:05)
[2016-09-10] MEDS: predniSONE 10 MG TAB PO SCH ×2 (09:05→21:35)
[2016-09-10] MEDS: NIFEdipine 60 MG SUSTAINED RELEASE TAB PO SCH (09:05)
[2016-09-10] MEDS: guaiFENesin E.R. 600 MG TAB PO SCH ×2 (09:05→21:35)
[2016-09-10] MEDS: POTASSIUM BICARBONATE 25 MEQ EFFERVESCENT TAB PO SCH ×2 (09:05→21:47)
[2016-09-10] MEDS: FLUCONAZOLE 100 MG TAB PO SCH (09:05)
[2016-09-10] MEDS: PANTOPRAZOLE SOD 20 MG DELAYED RELEASE TAB PO SCH (09:06)
[2016-09-10] MEDS: ENOXAPARIN SODIUM 60 MG/0.6 ML SYRINGE SQ SCH ×2 (09:06→21:46)
[2016-09-10] MEDS: NICOTINE 21 MG/24 HR PATCH TD SCH (09:07)
[2016-09-10] MEDS: MAGNESIUM HYDROXIDE SUSP 30 ML CUP PO PRN (09:25)
[2016-09-10] MEDS: cefTRIAXone INJ 1,000 MG in SODIUM CHLORIDE 0.9% INJ 100 ML IV SCH (14:24)
--- NOTE | 2016-09-10 15:34 | HHI.PR ---
Subjective Subjective Remarks Alert Resting in bed Appetite fair/good Feeling better today Active diuresis Review of Systems Constitutional Constitutional: Fatigue (easily) Constitutional Remarks 10 point ROS done positives noted otherwise negative are unremarkable Pulmonary Respiratory: Coughing (occasional), Shortness of Breath (exertional) GI/Abdomen GI/Abdomen Remarks Bloating, improved No BM 2 days Psychiatric Psychiatric: Normal Mood, Anxiety (mild) Vitals/Results Intake & Output 09/09/16 09/09/16 09/10/16 15:00 23:00 07:00 Intake Total 240 ml 120 ml Balance 240 ml 120 ml Intake Oral 240 ml 120 ml IV Total 0 ml # Voids 1 10 # Bowel Movements 0 0 Vital Signs Vital Signs Date Time Temp Pulse Resp B/P Pulse Ox O2 Delivery O2 Flow Rate FiO2 09/10/16 12:00 98.8 87 18 166/86 96 09/10/16 08:00 97.6 86 18 167/79 96 134/80 09/10/16 08:00 78 09/10/16 04:00 97.8 87 21 152/70 93 09/10/16 00:00 97.6 77 20 144/71 95 09/09/16 20:00 97.6 91 21 152/71 94 09/09/16 16:09 120/64 09/09/16 16:00 97.3 92 20 147/69 95 CBC/BMP: 09/07/16 0545 09/09/16 0610 Imaging Remarks Last Impressions CT Angiography 09/09/16 1253 Signed Impressions: Service Date/Time: Friday, September 09, 2016 14:00 - CONCLUSION: 1. No pulmonary embolus. 2. Persistent but slightly smaller thrombosis of the left inferior pulmonary vein. 3. No significant change focal right middle lobe consolidation. Praveen Frias MD Abdomen Ultrasound 09/09/16 0000 Signed Impressions: Service Date/Time: Friday, September 09, 2016 13:17 - CONCLUSION: No free fluid is visualized. Praveen Martin MD Abdomen X-Ray 09/08/16 0000 Signed Impressions: Service Date/Time: Thursday, September 08, 2016 20:42 - CONCLUSION: Nonobstructive bowel gas pattern. Moderate stool in the colon. Praveen Frias MD Lower Extremity Ultrasound 09/05/16 0000 Signed Impressions: Service Date/Time: Monday, September 05, 2016 21:46 - CONCLUSION: Normal examination. Praveen Maria MD Chest X-Ray 09/04/16 1319 Signed Impressions: Service Date/Time: Sunday, September 04, 2016 13:18 - CONCLUSION: Cardiomegaly. No acute cardiopulmonary disease. Jesús Cruz MD Current Medications Active Medications Potassium Bicarbonate (Effer-K Eff) 50 meq BID PO Last administered on 09/10/16 09:05; Admin Dose 50 MEQ; Start 09/09/16 at 21:00 Prednisone (Deltasone) 10 mg BID PO Last administered on 09/10/16 09:05; Admin Dose 10 MG; Start 09/09/16 at 21:00 Physical Exam General General Appearance: Well Developed, No Acute Distress, Comfortable Eyes Eye Exam: Pupils Equal, Pupils Reactive Ears & Nose Ears & Nose Exam: Nasal Mucosa [place] Throat Throat Exam: Oral Mucosa [place] & Moist Neck Neck Exam: Neck Supple, Trachea Midline Pulmonary Resp Exam: Rhonchi Cardiology CV Exam: Regular Gastrointestinal/Abdomen GI Exam: Soft, Non-Tender, Bowel Sounds Present, Non-Distended Musculoskeletal MS Exam: Joints Intact Integumentary Skin Exam: Warm, Dry Extremeties Extremities Exam: Pedal Pulses Palpable, Trace Edema Neurologic Neuro Exam: Alert, Awake, Oriented, Speech Clear, Moving All Extremities, No Focal Deficits Psychiatric Psych Exam: Appropriate Responses VTE Prophylaxis VTE Prophylaxis Meds: Lovenox Assessment/Plan Problem List: (1) COPD exacerbation (2) PVD (peripheral vascular disease) with claudication (3) Low back pain potentially associated with radiculopathy (4) Hypertension (5) Pulmonary embolism (6) Tobacco abuse (7) Bronchitis (8) Hx of aorto-femoral bypass (9) GERD (gastroesophageal reflux disease) (10) CAD (coronary artery disease) (11) CHF (congestive heart failure) (12) Pulmonary hypertension Assessment/Plan Bronchitis, stabilized with steroids, dual nebs, O2 therapy. Rocephin IV No acute shortness of breath at rest, symptoms are becoming more manageable for patient. Patient hopeful for discharge today Medical management with when necessary meds Appreciate hematology input, no anticoagulation recommended for outpatient use. See note Lovenox for DVT reflexes Appreciate cardiology input, Abdominal bloating and fluid retention improved today with IV Lasix. According to record patient voided at least 10 times on 3-9. With Will change to a daily by mouth dose. And add low-dose potassium Blood pressure 155 systolic. Monitor continue with hydralazine/Cozaar/Procardia Clonidine PRN Encourage patient to maintain minimal amounts of sodas, low-salt diet PPI for GI prophylaxis Patient feeling much better. We'll work towards discharge planning within the next day or so. D/W pt D/W Dr. Jeter, she was seen on his behalf Problem Qualifiers (1) Hypertension: Qualified Code: I10 - Essential hypertension (2) Pulmonary embolism: Qualified Code: I26.99 - Other acute pulmonary embolism without acute cor pulmonale (3) GERD (gastroesophageal reflux disease): Qualified Code: K21.9 - Gastroesophageal reflux disease without esophagitis (4) CAD (coronary artery disease): Qualified Code: I25.10 - Coronary artery disease involving [place] coronary artery of [place] heart without angina pectoris (5) CHF (congestive heart failure): Qualified Code: I50.9 - Acute congestive heart failure, unspecified congestive heart failure type Becky Salas Sep 10, 2016 15:34
[2016-09-10] MEDS: POTASSIUM CHLORIDE 20 MEQ CONTROLLED RELEASE TAB PO SCH (16:29)
--- NOTE | 2016-09-10 18:42 | PD.ONC.PN ---
Subjective Subjective Remarks Ms. Butler reports her breathing is improved and is close to baseline. She however has noticed increased swelling and bruising of her R breast over the past 12 hrs. She had an US of the breast earlier today. She also underwent repeat CT A chest on 09/09 to reevaluate the L pulmonary vein thrombosis. She remains on therapeutic dose lovenox. Objective Data Date Time Temp Pulse Resp B/P Pulse Ox O2 Delivery O2 Flow Rate FiO2 09/10/16 16:00 97.9 91 20 152/84 95 09/10/16 12:00 98.8 87 18 166/86 96 09/10/16 08:00 97.6 86 18 167/79 96 134/80 09/10/16 08:00 78 09/10/16 04:00 97.8 87 21 152/70 93 09/10/16 00:00 97.6 77 20 144/71 95 09/09/16 20:00 97.6 91 21 152/71 94 09/10/16 09/10/16 09/10/16 07:00 15:00 23:00 Intake Total 120 ml 720 ml Balance 120 ml 720 ml Result Diagram: 09/07/16 0545 09/09/16 0610 Administered Medications Medications (Trade) Dose Ordered Sig/Sebastian Route PRN Reason Start Time Stop Time Status Last Admin Dose Admin Budesonide/ Formoterol Fumarate (Symbicort 160-4.5 Inh) 1 puff Q12HR INH 09/04/16 21:00 09/10/16 09:04 Acetaminophen/ Hydrocodone Bitart ([place] 5-325 Mg) 1 tab Q6H PRN PO PAIN 09/04/16 18:15 09/09/16 21:53 Tiotropium [place] (Spiriva Inh) 18 mcg DAILY INH 09/05/16 09:00 09/10/16 09:04 IV Flush (NS Flush) 2 ml BID FLUSH 09/04/16 21:00 09/10/16 09:03 Ondansetron HCl (Zofran Inj) 4 mg Q6H PRN IVP NAUSEA OR VOMITING 09/04/16 18:15 09/08/16 20:02 Magnesium Hydroxide (Milk Of Magnesia Liq) 30 ml Q12H PRN PO CONSTIPATION 09/04/16 18:15 09/10/16 09:25 Sennosides (Senokot) 17.2 mg Q12H PRN PO CONSTIPATION 09/04/16 18:15 09/08/16 22:13 Enoxaparin Sodium (Lovenox Inj) 60 mg Q12HR SQ 09/04/16 18:15 09/10/16 09:06 Clonidine (Catapres) 0.1 mg Q6H PRN PO SBP>160, DBP>90 09/04/16 19:30 09/08/16 12:01 Enalaprilat 1.25 mg 1.25 mg Q6H PRN IV PUSH SBP>160, DBP>90 09/04/16 19:30 09/08/16 00:08 Ceftriaxone Sodium/Sodium Chloride (Rocephin Inj/NS Inj) 100 ml @ 200 mls/hr Q24H IV 09/06/16 13:00 09/10/16 14:24 Pantoprazole Sodium (Protonix) 20 mg DAILY PO 09/06/16 12:15 09/10/16 09:06 Nicotine (Habitrol 21 Mg Patch.24 Hr) 1 patch DAILY TD 09/06/16 18:00 09/10/16 09:07 Miscellaneous Information 1 HS TD 09/06/16 21:00 09/09/16 21:00 Losartan Potassium (Cozaar) 50 mg DAILY PO 09/08/16 09:00 09/10/16 09:05 Guaifenesin (Mucinex Er) 1,200 mg BID PO 09/07/16 21:00 09/10/16 09:05 Nifedipine (Procardia Xl) 60 mg DAILY PO 09/07/16 19:00 09/10/16 09:05 Hydralazine HCl (Apresoline) 50 mg Q8HR PO 09/08/16 15:00 09/10/16 14:23 Fluconazole (Diflucan) 100 mg DAILY PO 09/08/16 15:00 09/10/16 09:05 Lorazepam (Ativan) 0.5 mg Q8H PRN PO ANXIETY 09/08/16 14:30 09/09/16 21:49 Potassium Bicarbonate (Effer-K Eff) 50 meq BID PO 09/09/16 21:00 09/10/16 09:05 Prednisone (Deltasone) 10 mg BID PO 09/09/16 21:00 09/10/16 09:05 Potassium Chloride (KCl) 20 meq DAILY PO 09/10/16 16:00 09/10/16 16:29 Objective Remarks GENERAL PHYSICAL APPEARANCE: Ms. Butler is a middle-aged female. S She has a Cushingoid appearance. She appears to be breathing more comfortably today. She is not distressed and speaks to me in full sentences. HEAD, EYES, EARS, NOSE, THROAT: Head is atraumatic and normocephalic. Conjunctivae are non-pale. The sclerae are anicteric. ORAL EXAM: No pharyngeal erythema. NECK EXAM: No palpable cervical or supraclavicular lymphadenopathy. RESPIRATORY EXAM: Good air entry bilaterally, she has a prolonged expiratory phase. Breast exam: (exam performed in the presence of a female nurse audiology assistant) R breast: 4.5 cm bruise anteriorly, underlying firmness noted, she has breast implants. Some tenderness noted. CARDIOVASCULAR EXAM: Regular rate and rhythm. Loud S1 and S2. No obvious murmurs, rubs or gallops. ABDOMINAL EXAM: Protuberant belly. Soft, nontender and nondistended. No palpable organ enlargement. LOWER EXTREMITIES: Bilateral pre-tibial edema. No calf tenderness. OPENER TENDER: No focal sensory or motor deficits. SKIN: She has multiple bruises over the forearms. She has chronic tobacco-related skin changes. Assessment/Plan Assessment Ms. Butler is a 66-year-old female who has COPD, frequent exacerbations and continues to smoke. She also has a history of peripheral arterial disease and has in the past undergone an aortobifemoral bypass graft surgery. The patient came into the hospital with a one-month history of progressive difficulty breathing refractory to oral and parenteral corticosteroids as well as various lines of oral antibiotics including azithromycin. She developed pain involving her chest and back prior to admission accompanied by exertional dyspnea and cough. Upon presentation to the emergency department, she underwent CT angiogram of the chest. CT angiogram revealed findings concerning for a left inferior branch pulmonary vein thrombosis. Please note, the pulmonary arterial system was without evidence of thrombosis with clear flow. She has remained on anticoagulation over the course of this admission. It would be my recommendation to obtain ultrasound Dopplers of the lower extremities as well as consider additional possible imaging modalities to confirm or rule out the presence of pulmonary venous thrombosis. Because the initial CTA chest findings were equivocal, she underwent a repeat CTA chest on 09/09 and this again revealed findings concerning for a pulmonary vein thrombosis. Plan 1. Pulmonary vein thrombosis: Continue therapeutic anticoagulation with lovenox. The patient will be d/alison home on oral apixaban, an appropriate dose would be 5mg po bid. 2. R breast bruise: no trauma, clinically consistent with bruising. Await US results. She will need an out patient Mammogram to rule out the presence on an underlying mass. Jose Rivera MD Sep 10, 2016 18:42
--- NOTE | 2016-09-10 19:45 | RADRPT ---
EXAM DATE/TIME: 09/10/2016 17:33 [place] COMPARISON: No previous studies available for comparison. INDICATIONS : Palpable, bruised area. MEDICAL HISTORY : Hypercholesterolemia. Hypertension. Chronic obstructive pulmonary disease. Coronary artery disease. SURGICAL HISTORY : Tonsillectomy. Tubal ligation. Hysterectomy. Cardiac catheterization. Open aortafemoral bypass. Left knee surgery. ENCOUNTER: Initial ACUITY: 1 day PAIN SCORE: 6/10 LOCATION: Right breast. FINDINGS: 2.4 x 4.3 x 2.1 cm complex collection is seen of the right breast at the 12: 00 position 10 cm from the nipple. There is associated bruising of the overlying skin and presumably this is a hematoma. Clinical correlation and followup recommended. Followup ultrasound recommended in approximately 3 months as well, sooner if there are any suspicious clinical developments. Underlying implant grossly intact. CONCLUSION: Large complex fluid collection in hematoma. Praveen Frias MD on September 10, 2016 at 19:41 Board Certified Radiologist. This report was verified electronically.
[2016-09-10] MEDS: REMOVE OLD NICODERM (NICOTINE) PATCH TD SCH (21:00)
[2016-09-11] VITALS: BP 176/79; PULSE 83; RESP 20; TEMP 98; O2SAT 95
[2016-09-11 04:00] VITALS: BP 159/75; PULSE 85; RESP 22; TEMP 98.2; O2SAT 94
[2016-09-11] MEDS: hydrALAZINE HCL 25 MG TAB PO SCH ×2 (06:04→13:49)
[2016-09-11] MEDS: BUDESONIDE-FORMOTEROL 160/4.5 MCG INHALER INH SCH (06:09)
[2016-09-11] MEDS: ACETAMINOPHEN/HYDROcodone 325 MG/5 MG TAB PO PRN (06:09)
[2016-09-11 08:00] VITALS: BP 138/75; PULSE 92; RESP 18; TEMP 98.1; O2SAT 98
[2016-09-11] MEDS ORDERED: FUROSEMIDE 20 MG TAB PO SCH (09:00)
[2016-09-11] MEDS: POTASSIUM BICARBONATE 25 MEQ EFFERVESCENT TAB PO SCH (09:00)
[2016-09-11] MEDS: predniSONE 10 MG TAB PO SCH (09:01)
[2016-09-11] MEDS: TIOTROPIUM BROMIDE 18 MCG INH INH SCH (09:01)
[2016-09-11] MEDS: FLUCONAZOLE 100 MG TAB PO SCH (09:02)
[2016-09-11] MEDS: PANTOPRAZOLE SOD 20 MG DELAYED RELEASE TAB PO SCH (09:02)
[2016-09-11] MEDS: NIFEdipine 60 MG SUSTAINED RELEASE TAB PO SCH (09:03)
[2016-09-11] MEDS: LOSARTAN 50 MG TAB PO SCH (09:03)
[2016-09-11] MEDS: guaiFENesin E.R. 600 MG TAB PO SCH (09:03)
[2016-09-11] MEDS: POTASSIUM CHLORIDE 20 MEQ CONTROLLED RELEASE TAB PO SCH (09:04)
[2016-09-11] MEDS: SODIUM CHLORIDE 0.9% FLUSH 5 ML FLUSH FLUSH SCH (09:06)
[2016-09-11] MEDS: NICOTINE 21 MG/24 HR PATCH TD SCH (09:08)
[2016-09-11] MEDS: ENOXAPARIN SODIUM 60 MG/0.6 ML SYRINGE SQ SCH (09:08)
[2016-09-11] MEDS: MAGNESIUM HYDROXIDE SUSP 30 ML CUP PO PRN (09:11)
[2016-09-11 10:26] VITALS: PULSE 86
--- NOTE | 2016-09-11 11:44 | HHI.PR ---
Subjective Subjective Remarks Alert Resting in bed Appetite fair/good Feeling better today No further complaints of abdominal fluid Hematoma right breast, patient on Lovenox (Becky Salsa) Review of Systems Constitutional Constitutional: Fatigue (easily) Constitutional Remarks 10 point ROS done positives noted otherwise negative are unremarkable (Becky Salas) Pulmonary Respiratory: Coughing (occasional), Shortness of Breath (exertional) (Becky Salas) Chest/Breast Chest/Breast: Tenderness (right breast hematoma just above the nipple line. Acute event no trauma, noted on 09/10/16) (Becky Salas) GI/Abdomen GI/Abdomen Remarks Bloating, improved No BM 2 days (Becky Salas) Musculoskeletal MS: Weakness (generalized) (Becky Salas) Psychiatric Psychiatric: Normal Mood, Anxiety (mild) (Becky Salas) Vitals/Results Intake & Output 09/10/16 09/10/16 09/11/16 15:00 23:00 07:00 Intake Total 720 ml Balance 720 ml Intake Oral 720 ml # Voids 3 3 # Bowel Movements 1 1 Vital Signs Vital Signs Date Time Temp Pulse Resp B/P Pulse Ox O2 Delivery O2 Flow Rate FiO2 09/11/16 10:26 86 09/11/16 08:00 98.1 92 18 138/75 98 09/11/16 07:09 19 09/11/16 04:00 98.2 85 22 159/75 94 09/11/16 00:00 98.0 83 20 176/79 95 09/10/16 20:00 98.5 88 22 140/81 94 09/10/16 19:53 85 09/10/16 16:00 97.9 91 20 152/84 95 09/10/16 12:00 98.8 87 18 166/86 96 (Becky Salas) CBC/BMP: 09/07/16 0545 09/09/16 0610 Imaging Remarks Last Impressions Breast Ultrasound 09/10/16 0000 Signed Impressions: Service Date/Time: September 17:33 - CONCLUSION: Large complex fluid collection in hematoma. Praeven Frias MD CT Angiography 09/09/16 1253 Signed Impressions: Service Date/Time: Friday, September 09, 2016 14:00 - CONCLUSION: 1. No pulmonary embolus. 2. Persistent but slightly smaller thrombosis of the left inferior pulmonary vein. 3. No significant change focal right middle lobe consolidation. Praveen Frias MD Abdomen Ultrasound 09/09/16 0000 Signed Impressions: Service Date/Time: Friday, September 09, 2016 13:17 - CONCLUSION: No free fluid is visualized. Praveen Martin MD Abdomen X-Ray 09/08/16 0000 Signed Impressions: Service Date/Time: Thursday, September 08, 2016 20:42 - CONCLUSION: Nonobstructive bowel gas pattern. Moderate stool in the colon. Praveen Frias MD Lower Extremity Ultrasound 09/05/16 0000 Signed Impressions: Service Date/Time: Monday, September 05, 2016 21:46 - CONCLUSION: Normal examination. Praveen Maria MD Chest X-Ray 09/04/16 1319 Signed Impressions: Service Date/Time: Sunday, September 04, 2016 13:18 - CONCLUSION: Cardiomegaly. No acute cardiopulmonary disease. Jesús Cruz MD Current Medications Active Medications Furosemide (Lasix) 20 mg DAILY PO Last administered on 09/11/16 09:02; Admin Dose 20 MG; Start 09/11/16 at 09:00 Potassium Chloride (KCl) 20 meq DAILY PO Last administered on 09/11/16 09:04; Admin Dose 20 MEQ; Start 09/10/16 at 16:00 (Becky Salas M. LOADING CHECKER) Physical Exam General General Appearance: Well Developed, No Acute Distress, Comfortable (JosueBecky yip M. LOADING CHECKER) Eyes Eye Exam: Pupils Equal, Pupils Reactive (Becky Salas M. LOADING CHECKER) Ears & Nose Ears & Nose Exam: Nasal Mucosa [place] (Becky Salas M. LOADING CHECKER) Throat Throat Exam: Oral Mucosa [place] & Moist (Yumiko Salasan M. LOADING CHECKER) Neck Neck Exam: Neck Supple, Trachea Midline (Yumiko Salasan M. LOADING CHECKER) Pulmonary Resp Exam: Rhonchi (Becky Salas M. LOADING CHECKER) Cardiology CV Exam: Regular (Becky Salas M. LOADING CHECKER) Chest/Breast Chest/Breast Remarks Large Hematoma right breast, around the nipple line (Becky Salas) Gastrointestinal/Abdomen GI Exam: Soft, Non-Tender, Bowel Sounds Present, Non-Distended (Becky Salas) Musculoskeletal MS Exam: Joints Intact (Becky SalasP) Integumentary Skin Exam: Warm, Dry (Becky Salas) Extremeties Extremities Exam: Pedal Pulses Palpable, Trace Edema (Becky SalasP) Neurologic Neuro Exam: Alert, Awake, Oriented, Speech Clear, Moving All Extremities, No Focal Deficits (Becky Salas) Psychiatric Psych Exam: Appropriate Responses (Becky Salas) VTE Prophylaxis VTE Prophylaxis Meds: Lovenox (Becky Salas) Assessment/Plan Problem List: (1) COPD exacerbation (2) PVD (peripheral vascular disease) with claudication (3) Low back pain potentially associated with radiculopathy (4) Hypertension (5) Pulmonary embolism (6) Tobacco abuse (7) Bronchitis (8) Hx of aorto-femoral bypass (9) GERD (gastroesophageal reflux disease) (10) CAD (coronary artery disease) (11) CHF (congestive heart failure) (12) Pulmonary hypertension Assessment/Plan Bronchitis, stabilized with steroids, dual nebs, O2 therapy. Rocephin IV No acute shortness of breath at rest, symptoms are becoming more manageable for patient. Patient hopeful for discharge soon Medical management with when necessary meds Appreciate hematology input, no anticoagulation recommended for outpatient use. See note Lovenox for DVT and pulmonary thrombus treatment. Pulmonary thrombus, discharge planning to go home on Eliquis, pending continuous evaluation of large hematoma on breast, nontraumatic Continuous education over no smoking and the side effects this could be causing. Appreciate cardiology input, By mouth Lasix and potassium supplement Vital signs reviewed, monitored continue with hydralazine/Cozaar/Procardia Clonidine PRN Encourage patient to maintain minimal amounts of sodas, low-salt diet PPI for GI prophylaxis Patient feeling much better. Large Hematoma right breast. Nontraumatic, reviewed, for any further procedures or needs. Patient is looking towards discharge on Eliquis. We'll need to evaluate medication versus large hematoma and any further side effects. We'll discuss any further evaluation consultations needed with Dr. Jeter D/W pt D/W Dr. Jeter, she was seen on his behalf (Becky Salas) Assessment/Plan seen and examined by myself,Dr Jeter , On 09/11/16 Patient cleared for discharge from general surgery Discussed with oncology/hematology Patient is to continue her eliquis discussed with nurse Discussed with patient, Plans and alternatives discussed, Her Right breast hematoma Might potentially get worse with anticoagulation, however Her life would be at risk without the anticoagulation because of the pulmonary embolism Discussed with mid-level practitioner The exam, history, and the medical decision-making described in the above note were completed with the assistance of the mid-level provider. I reviewed the findings presented. I attest that I had a [id number] encounter with the patient on the same day, and personally performed and documented my assessment and findings in the medical record. (Nereida Jeter MD) Problem Qualifiers (1) Hypertension: Qualified Code: I10 - Essential hypertension (2) Pulmonary embolism: Qualified Code: I26.99 - Other acute pulmonary embolism without acute cor pulmonale (3) GERD (gastroesophageal reflux disease): Qualified Code: K21.9 - Gastroesophageal reflux disease without esophagitis (4) CAD (coronary artery disease): Qualified Code: I25.10 - Coronary artery disease involving [place] coronary artery of [place] heart without angina pectoris (5) CHF (congestive heart failure): Qualified Code: I50.9 - Acute congestive heart failure, unspecified congestive heart failure type Becky Salas Sep 11, 2016 11:44 Nereida Jeter MD Sep 12, 2016 12:01
[2016-09-11 12:00] VITALS: BP_SYST 160; BP_SYST 177; BP_DIAS 85; BP_DIAS 99; PULSE 92; RESP 20; TEMP 98.6; O2SAT 95
[2016-09-11] MEDS: cefTRIAXone INJ 1,000 MG in SODIUM CHLORIDE 0.9% INJ 100 ML IV SCH (13:49)
[2016-09-11 16:00] VITALS: BP 180/95; PULSE 87; RESP 18; TEMP 98.3; O2SAT 98
--- NOTE | 2016-09-11 16:32 | PD.CONS ---
cc: Benedict Dunn MD HPI Service General Surgery Consult Requested By Dr. Grijalva Reason for Consult RIGHT breast hematoma Primary Care Physician Boston Ramires M.D. History of Present Illness This is a 66 year old female admitted several days ago for COPD, CHF, and PE. Her COPD was treated with nebulizer breathing treatments and steroids. She was started on Lovenox for her PE. She noticed yesterday bruising on her RIGHT breast with minimal pain. She has been using ice. A general surgery consult was requested for evaluation of her RIGHT breast hematoma. Review of Systems Constitutional: DENIES: Fatigue, Fever, Weight gain Endocrine: DENIES: Heat/cold intolerance, Polydipsia, Polyuria, Polyphagia Eyes: DENIES: Blurred vision, Eye inflammation Ears, nose, mouth, throat: DENIES: Tinnitus, Hearing loss Respiratory: DENIES: Apneas, Cough, Snoring Cardiovascular: DENIES: Chest pain, Palpitations Gastrointestinal: DENIES: Abdominal pain, Diarrhea, Nausea Genitourinary: DENIES: Dyspareunia, Urinary frequency Integumentary: DENIES: Abnormal pigmentation Hematologic/lymphatic: DENIES: Bruising Immunologic/allergic: DENIES: Eczema Neurologic: DENIES: Abnormal gait Psychiatric: DENIES: Confusion, Mood changes, Depression Past Family Social History Past Medical History COPD Past Surgical History Bilateral breast implants Reported Medications See chart Allergies: Coded Allergies: Demerol (Verified Allergy, Severe, Anaphylaxis, 09/04/16) Tetracycline (Verified Allergy, Unknown, 09/04/16) Active Ordered Medications Current Medications Medications (Trade) Dose Ordered Sig/Sebastian Route Start Time Stop Time Status Last Admin (Symbicort 160-4.5 Inh) 1 puff Q12HR INH 09/04/16 21:00 09/11/16 06:09 ([place] 5-325 Mg) 1 tab Q6H PRN PO 09/04/16 18:15 09/11/16 06:09 (Spiriva Inh) 18 mcg DAILY INH 09/05/16 09:00 09/11/16 09:01 (NS Flush) 2 ml UNSCH PRN FLUSH 09/04/16 18:15 (NS Flush) 2 ml BID FLUSH 09/04/16 21:00 09/11/16 09:06 (Zofran Inj) 4 mg Q6H PRN IVP 09/04/16 18:15 09/08/16 20:02 (Dulcolax Supp) 10 mg DAILY PRN [place] 09/04/16 18:15 (Milk Of Magnesia Liq) 30 ml Q12H PRN PO 09/04/16 18:15 09/11/16 09:11 (Senokot) 17.2 mg Q12H PRN PO 09/04/16 18:15 09/08/16 22:13 (Lovenox Inj) 60 mg Q12HR SQ 09/04/16 18:15 09/11/16 09:08 (Narcan Inj) 0.4 mg UNSCH PRN IV 09/04/16 18:15 (Catapres) 0.1 mg Q6H PRN PO 09/04/16 19:30 09/08/16 12:01 Enalaprilat 1.25 mg 1.25 mg Q6H PRN IV PUSH 09/04/16 19:30 09/08/16 00:08 (Rocephin Inj/NS Inj) 100 ml @ 200 mls/hr Q24H IV 09/06/16 13:00 09/11/16 13:49 (Protonix) 20 mg DAILY PO 09/06/16 12:15 09/11/16 09:02 (Habitrol 21 Mg Patch.24 Hr) 1 patch DAILY TD 09/06/16 18:00 09/11/16 09:08 Miscellaneous Information 1 HS TD 09/06/16 21:00 09/10/16 21:00 (Cozaar) 50 mg DAILY PO 09/08/16 09:00 09/11/16 09:03 (Mucinex Er) 1,200 mg BID PO 09/07/16 21:00 09/11/16 09:03 (Procardia Xl) 60 mg DAILY PO 09/07/16 19:00 09/11/16 09:03 (Apresoline) 50 mg Q8HR PO 09/08/16 15:00 09/11/16 13:49 (Diflucan) 100 mg DAILY PO 09/08/16 15:00 09/11/16 09:02 (Ativan) 0.5 mg Q8H PRN PO 09/08/16 14:30 09/09/16 21:49 (Effer-K Eff) 50 meq BID PO 09/09/16 21:00 09/10/16 21:47 (Deltasone) 10 mg BID PO 09/09/16 21:00 09/11/16 09:01 (Lasix) 20 mg DAILY PO 09/11/16 09:00 09/11/16 09:02 (KCl) 20 meq DAILY PO 09/10/16 16:00 09/11/16 09:04 Family History Non contributory Social History +Smoking Denies ETOH use Denies illicit use Physical Exam Vital Signs Vital Signs Date Time Temp Pulse Resp B/P Pulse Ox O2 Delivery O2 Flow Rate FiO2 09/11/16 12:00 98.6 92 20 177/99 95 160/85 09/11/16 10:26 86 09/11/16 08:00 98.1 92 18 138/75 98 09/11/16 07:09 19 09/11/16 04:00 98.2 85 22 159/75 94 09/11/16 00:00 98.0 83 20 176/79 95 09/10/16 20:00 98.5 88 22 140/81 94 09/10/16 19:53 85 Physical Exam GENERAL: Alert and awake female resting in bed SKIN: Warm and dry. RIGHT breast: large ecchymotic area; no palpable mass HEAD: Atraumatic. Normocephalic. EYES: Pupils equal and round. No scleral icterus. No injection or drainage. ENT: No nasal bleeding or discharge. Mucous membranes pink and moist. NECK: Trachea midline. CARDIOVASCULAR: Regular rate and rhythm. RESPIRATORY: No accessory muscle use. Clear to auscultation. Breath sounds equal bilaterally. GASTROINTESTINAL: Abdomen soft, non-tender, nondistended. MUSCULOSKELETAL: Extremities without clubbing, cyanosis, or edema. No obvious deformities. NEUROLOGICAL: Awake and alert. No obvious cranial nerve deficits. Motor grossly within normal limits. Five out of 5 muscle strength in the arms and legs. Normal speech. PSYCHIATRIC: Appropriate mood and affect; insight and judgment normal. Result Diagram: 09/07/16 0545 09/09/16 0610 Imaging Last 48 hours Impressions Breast Ultrasound 09/10/16 0000 Signed Impressions: Service Date/Time: September 17:33 - CONCLUSION: Large complex fluid collection in hematoma. Praveen Frias MD Assessment and Plan Assessment and Plan 66 year old female with PE s/p initiating of Lovenox now with RIGHT breast hematoma -Was instructed to return to ED if breast increases in size 50% or skin turns necrotic -Suggest supportive sports bra at all time -Pain control -Follow up with Dr. Dunn in a few weeks for evaluation -GS clear for DC Attending Statement The exam, history, and the medical decision-making described in the above note were completed with the assistance of the mid-level provider. I reviewed and agree with the findings presented. I attest that I had a [id number] encounter with the patient on the same day, and personally performed and documented my assessment and findings in the medical record. small right hematoma right breast, no skin necrosis or signs of worsening, ok for DC, d/w patient signs/Sx requiring return to ER Jojo López Sep 11, 2016 16:32 Benedict Dunn MD Sep 12, 2016 01:56
[2016-09-11] MEDS: cloNIDine HCL 0.1 MG TAB PO PRN (16:33)
[2016-09-11] MEDS ORDERED: NICO21DI2 TD (16:48)
[2016-09-11] MEDS ORDERED: HYDR25TA35 PO (16:48)
[2016-09-11] MEDS ORDERED: PANT20 PO (16:48)
[2016-09-11] MEDS ORDERED: NIFE60TA8 PO (16:48)
[2016-09-11] MEDS ORDERED: DIFL100T PO (16:48)
[2016-09-11] MEDS ORDERED: PRED10 PO (16:51)
[2016-09-11] MEDS ORDERED: APIX5TAB PO (16:54)
--- NOTE | 2016-09-13 15:23 | HHI.DS ---
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 The patient was a smoker. She smoked half pack of cigarettes a day despite the fact that she has had multiple issues with that including COPD and peripheral arterial disease. She was status post aortobifemoral bypass surgery. She also was told that she had some "strain on her heart" by her plating and point assembly supervisor for which she was put on isosorbide. For the last several weeks to months she' s had been complaining of progressive worsening shortness of breath for which she received a number of courses of antibiotics including at least a course of Augmentin and a course of Zithromax at some point. She also had received some prednisone. CBC/BMP: 09/09/16 0610 Imaging Last Impressions Breast Ultrasound 09/10/16 0000 Signed Impressions: Service Date/Time: September 17:33 - CONCLUSION: Large complex fluid collection in hematoma. Praveen Frias MD CT Angiography 09/09/16 1253 Signed Impressions: Service Date/Time: Friday, September 09, 2016 14:00 - CONCLUSION: 1. No pulmonary embolus. 2. Persistent but slightly smaller thrombosis of the left inferior pulmonary vein. 3. No significant change focal right middle lobe consolidation. Praveen Frias MD Abdomen Ultrasound 09/09/16 0000 Signed Impressions: Service Date/Time: Friday, September 09, 2016 13:17 - CONCLUSION: No free fluid is visualized. Praveen Martin MD Abdomen X-Ray 09/08/16 0000 Signed Impressions: Service Date/Time: Thursday, September 08, 2016 20:42 - CONCLUSION: Nonobstructive bowel gas pattern. Moderate stool in the colon. Praveen Frias MD Lower Extremity Ultrasound 09/05/16 0000 Signed Impressions: Service Date/Time: Monday, September 05, 2016 21:46 - CONCLUSION: Normal examination. Praveen Maria MD Chest X-Ray 09/04/16 1319 Signed Impressions: Service Date/Time: Sunday, September 04, 2016 13:18 - CONCLUSION: Cardiomegaly. No acute cardiopulmonary disease. Jesús Cruz MD PE at Discharge General General Appearance: Well Developed, No Acute Distress, Comfortable Eyes Eye Exam: Pupils Equal, Pupils Reactive Ears & Nose Ears & Nose Exam: Nasal Mucosa [place] Throat Throat Exam: Oral Mucosa [place] & Moist Neck Neck Exam: Neck Supple, Trachea Midline Pulmonary Resp Exam: Rhonchi Resp Remarks exp. wheezes Cardiology CV Exam: Regular Gastrointestinal/Abdomen GI Exam: Soft, Non-Tender, Bowel Sounds Present, Non-Distended Musculoskeletal MS Exam: Joints Intact Integumentary Skin Exam: Warm, Dry Extremeties Extremities Exam: Pedal Pulses Palpable, Trace Edema Neurologic Neuro Exam: Alert, Awake, Oriented, Speech Clear, Moving All Extremities, No Focal Deficits Psychiatric Psych Exam: Appropriate Responses Hospital Course In the emergency department at [facility] today and was seen by Dr. Hurt. She was seen subsequently by the undersigned in room E 54. She was alert oriented. She continued to complain of trouble breathing and recurrent cough. She was complaining of abdominal distention and also ankle swelling. A CT angiogram of the chest showed pulmonary vein thrombosis. The case was discussed with on-call oncologist Dr. Macias. The case was to be treated as an ordinary pulmonary embolism. The patient was also complaining of some stabbing chest pain in the low substernal area radiating to her back. It was not clear whether this pain was pleuritic. This had been going on for a number of weeks. Patient was admitted to the hospital for further workup and treatment. These are the diagnoses that were used to treat this patient during this hospital stay and with her plan of care. (1) COPD exacerbation (2) PVD (peripheral vascular disease) with claudication (3) Low back pain potentially associated with radiculopathy (4) Hypertension (5) Pulmonary embolism (6) Tobacco abuse (7) Bronchitis (8) Hx of aorto-femoral bypass (9) GERD (gastroesophageal reflux disease) (10) CAD (coronary artery disease) (11) CHF (congestive heart failure) (12) Pulmonary hypertension Course of treatment Initiated with empiric antibiotics, supplemental oxygen, DuoNeb's change to PO steroids Monitor O2 saturation due to pulmonary thrombus complication Tobacco abuse counseling Started with nicotine patch Continue with antitussives when necessary due to patient's cough Continue with Spiriva, Symbicort Continue with Mucinex 200 mg by mouth twice a day Appreciate hematology input, he has reviewed the imaging studies in detail, no evidence Per hematology input, he believed there are changes in contrast flow secondary to dilution of the contrast medium Does not feel comfortable recommending therapeutic anticoagulation for this indication, consider obtaining a different modality scan or consider possible pulmonary or left heart angiogram for further evaluation. However, given that there is evidence of pulmonary hypertension, anticoagulation may be an indication anyway given the pulmonary hypertension Ultrasound of lower extremities was recommended and done and is negative. CTA chest repeated 09/09, smaller thrombus inf. pulm vein continue Lovenox SQ, anticoagulant per plan of care Appreciate cardiology input for C/O abd. distension, ? fluid overload, Echocardiogram has been completed, EF 50-55% change to Lasix 40 mg IV BID abd. xray results noted, mod stool fluid restriction last 48 hrs of hospital stay d/w pt need to restrict soda use. States she only drinks 4, emphasized fluid restriction and documented. Blood pressure elevated, but improved continue with hydralazine/Cozaar/Procardia Clonidine PRN for her uncontrolled hypertension systolic greater than 170. Anxiety , outpatient and inpatient diagnosis continue with Ativan PRN Continue with Lovenox for DVT prophylaxis PPI for GI prophylaxis Hgb A1c checked and within normal limits will need anticoagulation, reviewed options of Coumad checked in and lab work that would need drawing, versus Eliquis, which needs no lab work. Patient checked her processing from mail order and decided on Eliquis therapy Labs in am reviewed for stability before patient's discharge was improved. Seen per Dr. Jeter, and was stable for discharge per his assessment. Pt Condition on Discharge: Stable Discharge Disposition: Discharge Home Discharge Instructions DIET: Follow Instructions for: Heart Healthy Diet Additional Diet Instructions: No smoking, no alcohol Activities you can perform: Weight Bearing as Arvin Other Activity Instructions: Use cold compresses over right breast Follow up Referrals: Oncology - 3-[address] ODILIA CAPELLAN Surgical - 4 Weeks with Benedict Dunn MD New Medications: Apixaban (Eliquis) 5 Mg Tab 5 MG PO BID Blood Clot Prevention #60 Ref 0 TAB Fluconazole (Diflucan) 100 Mg Tab 100 MG PO DAILY infection #7 TAB Hydralazine (Hydralazine) 25 Mg Tab 50 MG PO Q8HR Blood Pressure Management #60 TAB Nicotine Patch (Nicotine Patch) 21 Mg/24 Hr Patch 1 PATCH TD DAILY smoking #30 EA Nifedipine ER 24 HR (Nifedipine ER 24 HR) 60 Mg Tab 60 MG PO DAILY Blood Pressure Management #30 TAB Pantoprazole (Protonix) 20 Mg Tab 20 MG PO DAILY heartburn #30 TAB Prednisone (Prednisone) 10 Mg Tab 10 MG PO BID Use 1 pill twice a day 5 days One pill once a day the following 5 days Half a pill once a day the following 5 days PRN COPD #20 TAB Continued Medications: Amlodipine (Amlodipine) 5 Mg Tab 5 MG PO DAILY Blood Pressure Management #30 Ref 0 TAB Azithromycin (Zithromax) 500 Mg Tab 500 MG PO DAILY Infection Ref 0 TAB Budesonide-Formoterol Inh (Symbicort Inh) 160-4.5 Mcg/Act Aero 1 PUFF INH Q12HR #1 Ref 0 INHALER Cholecalciferol (Vitamin D) 5,000 Unit Tab 4000 Cyclobenzaprine (Flexeril) 10 Mg Tab 10 MG PO TID Muscle Spasm #90 Ref 0 TAB Dextromethorphan-Guaifenesin (Mucinex DM) 30-600 Mg Tab 1 TAB PO BID PRN CHEST CONGESTION AND/OR COUGH Ref 0 TAB Furosemide (Furosemide) 20 Mg Tab 20 MG PO DAILY #30 Ref 0 TAB Hydrocodone-Acetaminophen ([place]) 5-325 mg Tab 1 TAB PO Q6H PRN PAIN Ref 0 TAB Hydrocodone-Homatropine Liq (Hydromet Liq) 5-1.5 Mg/5 Ml Syrp 5 ML PO Q4H PRN COUGH Ref 0 ML Lorazepam (Ativan) 0.5 Mg Tab 0.5 MG PO DAILY PRN ANXIETY AND/OR AGITATION Ref 0 TAB Losartan (Losartan) 25 Mg Tab 25 MG PO DAILY Blood Pressure Management #30 Ref 0 TAB Tiotropium Inh (Spiriva [place]) 18 Mcg Cap 18 MCG INH DAILY 1 capsule = 18 mcg COPD #30 Ref 0 CAP Discontinued Medications: Amoxicillin-Clavulanate (Augmentin) 875-125 mg Tab 875 MG PO BID not for use in CrCl <30 ml/min. Infection Ref 0 TAB Prednisone (Prednisone) 1 Mg Tab 1 MG PO DAILY Ref 0 TAB ([imdur]) Becky Salas Sep 13, 2016 15:23
[2016-09-15 19:54] LABS: Echinococcus IgG Screen NEGATIVE (())
== END 2016-09-11 18:53 | disposition home or self-care (01) | DRG 176 ==
LOC: NEPE 12:40 → NEDA 18:05 → N04A 20:20
PROVIDERS: ADMIT Specialist; ATTEND Specialist
DX: I26.99 Other pulmonary embolism without acute cor pulmonale (principal); J44.1 Chronic obstructive pulmonary disease with (acute) exacerbation; I10 Essential (primary) hypertension; I25.10 Atherosclerotic heart disease of native coronary artery without angina pectoris; K21.9 Gastro-esophageal reflux disease without esophagitis; F41.9 Anxiety disorder, unspecified; F17.210 Nicotine dependence, cigarettes, uncomplicated; J45.909 Unspecified asthma, uncomplicated; E78.00 Pure hypercholesterolemia, unspecified; I50.9 Heart failure, unspecified; I73.9 Peripheral vascular disease, unspecified; E78.5 Hyperlipidemia, unspecified; Z87.11 Personal history of peptic ulcer disease; Z88.1 Allergy status to other antibiotic agents; Z88.5 Allergy status to narcotic agent; M54.5 Low back pain; Z80.49 Family history of malignant neoplasm of other genital organs; Z98.82 Breast implant status; N64.89 Other specified disorders of breast
CPT/HCPCS: 71010; 71275; 74000; 76642; 76705; 80048; 80053; 81001; 82550; 82552; 83036; 83605; 83735; 83880; 84484; 85025; 85027; 85379; 85610; 85730; 86682; 87040; 87804; 93005; 93306; 93970; 94640; 94664; 96374; 96375; J0696; J1650; J1940; J1956; J2405; J2930; J7512; J7613; Q9967